=== PATIENT | male | born 1940 | race Caucasian/White ===

== ENCOUNTER 2018-10-23 09:34 | Emergency (ER) | payer MEDICARE ==
[~2018-10-23] VITALS: Ht 182.9 cm; Wt 66.2 kg
[~2018-10-23 09:34] MED LIST: ATEN50 PO
[2018-10-23] MEDS ORDERED: GENTAK (09:58)
[2018-10-23] MEDS ORDERED: Ciloxan5 ML RIGHTEYE (10:04)
== END 2018-10-23 10:51 | disposition home or self-care (01) ==
LOC: ER 09:34
DX: H10.31 Unspecified acute conjunctivitis, right eye (principal); Z79.899 Other long term (current) drug therapy; I10 Essential (primary) hypertension; Z87.891 Personal history of nicotine dependence
CPT/HCPCS: 87070; 87077; 87185; 87205; 99283

== ENCOUNTER 2019-01-03 14:56 | Emergency (ER) | payer OTHER, MEDICARE ==
[~2019-01-03] VITALS: Ht 175.3 cm; Wt 83.9 kg
[~2019-01-03 14:56] MED LIST changes: +Ciloxan5 ML RIGHTEYE; +GENTAK
[2019-01-03 16:00] LABS: BASOPHILS ABSOLUTE AUTO 0.05 K/mm3 (0.00-0.23); BASOPHILS PERCENT AUTO 1 % (0-2); EOSINOPHILS ABSOLUTE AUTO 0.09 K/mm3 (0.00-0.68); EOSINOPHILS PERCENT AUTO 1 % (0-6); Hematocrit 35.3 % (37.0-53.0); Hemoglobin 11.1 g/dL (13.5-17.5); IMMATURE GRAN ABSOLUTE AUTO 0.06 K/mm3 (0.00-0.10); IMMATURE GRAN PERCENT AUTO 1 % (0-1); LYMPHOCYTES PERCENT AUTO 14 % (21-46); MONOCYTES ABSOLUTE AUTO 0.54 K/mm3 (0.16-1.47); MONOCYTES PERCENT AUTO 6 % (4-13); Mean Corpuscular HGB 32.4 pg (26.0-34.0); Mean Corpuscular HGB Conc 31.4 g/dL (31.5-36.5); Mean Corpuscular Volume 103 fL (80-100); Mean Platelet Volume 10.7 fL (9.1-12.4); NEUTROPHILS ABSOLUTE AUTO 6.93 K/mm3 (1.96-9.15); NEUTROPHILS PERCENT AUTO 78 % (41-73); Platelet Count 180 K/mm3 (150-400); RDW Coefficient Variation 13.4 % (11.7-14.2); RDW Standard Deviation 50.9 fL (35.1-46.3); Red Blood Cell Count 3.43 M/mm3 (4.30-5.90); White Blood Cell Count 8.87 K/mm3 (4.00-11.30)
[2019-01-03 16:04] LABS: Base Excess Venous 2.2 mmol/L; Bicarbonate Venous 25.4 mmol/L (24.0-30.0); PCO2 Venous 60.7 mmHg (38-42); PO2 Venous 81.2 mmHg (38-42); pH Blood Venous 7.29 (7.34-7.37)
[2019-01-03 16:15] LABS: Alanine Aminotransfer (ALT/SGP 114 U/L (12-78); Albumin, Blood 3.3 g/dL (3.4-5.0); Albumin/Globulin Ratio 0.9 (0.8-1.8); Alk Phos 94 U/L (50-136); Anion Gap 3 mmol/L (6-16); Aspartate Aminotrans (AST/SGOT 163 U/L (12-37); Bilirubin, Total 0.7 mg/dL (0.1-1.0); Blood Urea Nitrogen 43 mg/dL (8-24); Bun/Creatinine Ratio 47.3 (12.0-20.0); CO2, Blood 31 mmol/L (21-32); Calcium, Blood 8.9 mg/dL (8.5-10.1); Chloride, Blood 106 mmol/L (98-108); Creatinine, Blood 0.91 mg/dL (0.60-1.20); Globulin, Blood 3.5 g/dL (2.2-4.0); Glomerular Filtration Rate >60 (60-); Glucose, Blood 140 mg/dL (70-99); Potassium, Blood 4.6 mmol/L (3.5-5.5); Sodium, Blood 140 mmol/L (136-145); Total Protein, Blood 6.8 g/dL (6.4-8.2)
== END 2019-01-03 19:25 | disposition short-term general hospital (02) ==
LOC: ER 14:56
PROVIDERS: Emergency Medicine
DX: S22.21XA Fracture of manubrium, initial encounter for closed fracture (principal); S32.019A Unspecified fracture of first lumbar vertebra, initial encounter for closed fracture; S27.0XXA Traumatic pneumothorax, initial encounter; T79.7XXA Traumatic subcutaneous emphysema, initial encounter; S60.212A Contusion of left wrist, initial encounter; S60.222A Contusion of left hand, initial encounter; S36.32XA Contusion of stomach, initial encounter; I48.91 Unspecified atrial fibrillation; I10 Essential (primary) hypertension; Z87.891 Personal history of nicotine dependence; Z79.899 Other long term (current) drug therapy; V49.40XA Driver injured in collision with unspecified motor vehicles in traffic accident, initial encounter
CPT/HCPCS: 32551; 36415; 71045; 71260; 72100; 73110; 80053; 82803; 85025; 93005; 93010; 94640; 96374-59; 96375-59; 96376-59; 99285-25; J1170; J2405; Q9967

== ENCOUNTER → 2020-08-08 | Outpatient (CLI) | payer MEDICARE | LOC: LAB 17:29 → LAB SHORT 17:29 | DX: L98.8 Other specified disorders of the skin and subcutaneous tissue (principal) | CPT/HCPCS: 87102; 87210 ==

== ENCOUNTER 2021-03-02 09:02 | Emergency (ER) | payer MEDICARE ==
[~2021-03-02] VITALS: Ht 182.9 cm; Wt 59.0 kg
[2021-03-02] MEDS ORDERED: FUROSEMIDE40 MG (09:41)
[2021-03-02] MEDS ORDERED: KLOR-CON 1010 ME5 (09:41)
== END 2021-03-02 09:38 | disposition home or self-care (01) ==
LOC: ER 09:02
DX: I83.892 Varicose veins of left lower extremity with other complications (principal); I10 Essential (primary) hypertension; Z79.899 Other long term (current) drug therapy
CPT/HCPCS: 12001; 90471; 90714; 99283-25

== ENCOUNTER 2021-04-14 03:04 | Emergency (ER) | payer MEDICARE ==
[~2021-04-14] VITALS: Ht 182.9 cm; Wt 60.3 kg
[~2021-04-14 03:04] MED LIST changes: +FUROSEMIDE40 MG; +KLOR-CON 1010 ME5
[2021-04-14] MEDS ORDERED: POTCHL20ER PO (03:27)
[2021-04-14] MEDS ORDERED: FURO40 PO (03:27)
== END 2021-04-14 03:42 | disposition home or self-care (01) ==
LOC: ER 03:04
DX: Z76.0 Encounter for issue of repeat prescription (principal); I10 Essential (primary) hypertension; Z87.891 Personal history of nicotine dependence
CPT/HCPCS: A9270

== ENCOUNTER → 2022-04-16 | Outpatient (CLI) | payer MEDICARE ==
[~2022-04-16] MED LIST changes: +FURO40 PO; +POTCHL20ER PO
[2022-04-16 13:46] LABS: BASOPHILS ABSOLUTE AUTO 0.08 K/mm3 (0.00-0.23); BASOPHILS PERCENT AUTO 1 % (0-2); EOSINOPHILS ABSOLUTE AUTO 0.38 K/mm3 (0.00-0.68); EOSINOPHILS PERCENT AUTO 5 % (0-6); IMMATURE GRAN ABSOLUTE AUTO 0.02 K/mm3 (0.00-0.10); IMMATURE GRAN PERCENT AUTO 0 % (0-1); LYMPHOCYTES ABSOLUTE AUTO 1.06 K/mm3 (0.84-5.20); LYMPHOCYTES PERCENT AUTO 15 % (21-46); MONOCYTES ABSOLUTE AUTO 0.55 K/mm3 (0.16-1.47); MONOCYTES PERCENT AUTO 8 % (4-13); Mean Corpuscular HGB 31.7 pg (26.0-34.0); Mean Corpuscular HGB Conc 33.3 g/dL (31.5-36.5); Mean Corpuscular Volume 95 fL (80-100); NEUTROPHILS ABSOLUTE AUTO 4.94 K/mm3 (1.96-9.15); NEUTROPHILS PERCENT AUTO 70 % (41-73); Platelet Count 240 K/mm3 (150-400); RDW Coefficient Variation 13.6 % (11.7-14.2); RDW Standard Deviation 47.7 fL (35.1-46.3); Red Blood Cell Count 3.79 M/mm3 (4.30-5.90); White Blood Cell Count 7.03 K/mm3 (4.00-11.30)
[2022-04-16 13:48] LABS: Bun/Creatinine Ratio 24.7 (12.0-20.0); Calcium, Blood 9.5 mg/dL (8.5-10.1); Creatinine, Blood 0.85 mg/dL (0.60-1.20); Potassium, Blood 4.5 mmol/L (3.5-5.5)
== END | disposition home or self-care (01) ==
LOC: LAB SHORT 13:39 → LAB 13:39
PROVIDERS: Physician Assistant Surgical
DX: M79.89 Other specified soft tissue disorders (principal)
CPT/HCPCS: 80048; 83880; 85025

== ENCOUNTER 2022-09-29 19:39 | Observation (INO) | payer MEDICARE ==
[~2022-09-29 19:39] MED LIST changes: -FUROSEMIDE40 MG; +FUROSEMIDE40 MG PO
[2022-09-29 20:15] LABS: BASOPHILS ABSOLUTE AUTO 0.02 K/mm3 (0.00-0.23); BASOPHILS PERCENT AUTO 0 % (0-2); EOSINOPHILS ABSOLUTE AUTO 0.01 K/mm3 (0.00-0.68); EOSINOPHILS PERCENT AUTO 0 % (0-6); Hematocrit 21.3 % (37.0-53.0); Hemoglobin 6.7 g/dL (13.5-17.5); IMMATURE GRAN ABSOLUTE AUTO 0.06 K/mm3 (0.00-0.10); IMMATURE GRAN PERCENT AUTO 1 % (0-1); LYMPHOCYTES ABSOLUTE AUTO 0.92 K/mm3 (0.84-5.20); LYMPHOCYTES PERCENT AUTO 9 % (21-46); MONOCYTES ABSOLUTE AUTO 0.58 K/mm3 (0.16-1.47); MONOCYTES PERCENT AUTO 6 % (4-13); Mean Corpuscular HGB 31.5 pg (26.0-34.0); Mean Corpuscular HGB Conc 31.5 g/dL (31.5-36.5); Mean Corpuscular Volume 100 fL (80-100); Mean Platelet Volume 10.5 fL (9.1-12.4); NEUTROPHILS ABSOLUTE AUTO 8.29 K/mm3 (1.96-9.15); NEUTROPHILS PERCENT AUTO 84 % (41-73); Platelet Count 186 K/mm3 (150-400); RDW Coefficient Variation 14.4 % (11.7-14.2); RDW Standard Deviation 51.9 fL (35.1-46.3); Red Blood Cell Count 2.13 M/mm3 (4.30-5.90); White Blood Cell Count 9.88 K/mm3 (4.00-11.30)
[2022-09-29 20:34] LABS: Albumin, Blood 2.5 g/dL (3.4-5.0); Albumin/Globulin Ratio 0.9 (0.8-1.8); Bilirubin, Total 0.4 mg/dL (0.1-1.0); Bun/Creatinine Ratio 31.3 (12.0-20.0); Creatinine, Blood 1.47 mg/dL (0.60-1.20); Globulin, Blood 2.9 g/dL (2.2-4.0); Potassium, Blood 4.5 mmol/L (3.5-5.5); Total Protein, Blood 5.4 g/dL (6.4-8.2)
[2022-09-29 22:46] LABS: RETICULOCYTE ABSOLUTE 0.0621 M/mm3 (0.0200-0.1100); RETICULOCYTE COUNT PERCENT 2.89 % (0.50-2.50)
[2022-09-29 23:13] LABS: Hematocrit 18.5 % (37.0-53.0)
[2022-09-29] MEDS ORDERED: ATEN25 PO (23:13)
[2022-09-29 23:28] LABS: International Normalized Ratio 1.08; Prothrombin Time Results 11.3 Sec (9.7-11.5)
[2022-09-29 23:39] LABS: Thyroid Stimulating Hormone 29.1 uIU/mL (0.360-4.800)
[2022-09-29 23:40] LABS: Percent Saturation 9.1 % (20.0-50.0)
[2022-09-29 23:56] VITALS: BP 102/46
[2022-09-30 02:40] VITALS: BP 111/67
[2022-09-30 05:21] LABS: Hematocrit 25.7 % (37.0-53.0); Hemoglobin 8.7 g/dL (13.5-17.5)
--- NOTE | 2022-09-30 05:29 | NUR ---
admit pt, blood infusing from ER [facility]. pt very nice and polite but confused , easily reoriented, bed alarm in place. vss no distress no pain,pt was able to ambulate to bathroom with minimal assist.
[2022-09-30 05:47] LABS: Albumin, Blood 2.5 g/dL (3.4-5.0); Albumin/Globulin Ratio 0.9 (0.8-1.8); Bun/Creatinine Ratio 32.1 (12.0-20.0); Creatinine, Blood 1.31 mg/dL (0.60-1.20); Globulin, Blood 2.7 g/dL (2.2-4.0); Potassium, Blood 4.5 mmol/L (3.5-5.5); Total Protein, Blood 5.2 g/dL (6.4-8.2)
--- NOTE | 2022-09-30 06:52 | NUR ---
VITAL DOCUMENTAION THE VITAL SIGNS FOR THE BLOOD TRANSFUION DID NOT TRANSFER TO COMPUTER
[2022-09-30 06:57] VITALS: BP 109/68
[2022-09-30 07:40] VITALS: BP 110/92
[2022-09-30 12:25] LABS: Hematocrit 27.7 % (37.0-53.0); Hemoglobin 9.1 g/dL (13.5-17.5)
[2022-09-30 16:08] VITALS: BP 114/57
[2022-09-30 19:37] VITALS: BP 127/56
[2022-10-01 03:03] VITALS: BP 141/102
--- NOTE | 2022-10-01 04:12 | NUR ---
SHIFT SUMMARY. PT WAS AOX4 ON ASSESSMENT, ABLE TO ANSWER ALL QUESTIONS APPROPRIATELY BUT HAS SPORADICALLY WOKEN SINCE SOMEHWAT DISORIENTED AND CONFUSED. EASILY REDIRECTED. PLEASANT, COOPERATIVE WITH CARE THUS FAR THIS SHIFT BUT OCCASIONALLY SOMEWHAT IRRITABLE. 1 BM THIS SHIFT, EARLY THIS MORNING. SBA TO BATHROOM. BED ALARM ON. DRESSING ON L HEEL C/D/I. PT TOOK 2100 MEDICATION WITHOUT DIFFICULTY. CALLS APPROPRIATELY SOMETIMES, OTHERTIMES ATTEMPTS OOB WITHOUT ASSISTANCE. BED LOCKED IN LOWEST POSITION. CALL LIGHT LEFT WITHIN REACH.
[2022-10-01 05:06] LABS: Hematocrit 24.1 % (37.0-53.0)
[2022-10-01 05:49] LABS: Albumin, Blood 2.4 g/dL (3.4-5.0); Albumin/Globulin Ratio 0.9 (0.8-1.8); Bilirubin, Total 0.4 mg/dL (0.1-1.0); Bun/Creatinine Ratio 27.5 (12.0-20.0); Calcium, Blood 8.4 mg/dL (8.5-10.1); Creatinine, Blood 0.94 mg/dL (0.60-1.20); Globulin, Blood 2.8 g/dL (2.2-4.0); Total Protein, Blood 5.2 g/dL (6.4-8.2)
[2022-10-01 08:01] VITALS: BP 149/100
[2022-10-01 09:45] VITALS: BP 134/73
[2022-10-01 09:46] VITALS: BP 134/73
[2022-10-01 10:57] LABS: Hematocrit 26.1 % (37.0-53.0); Hemoglobin 8.7 g/dL (13.5-17.5)
[2022-10-01] MEDS ORDERED: FURO40 PO (12:08)
--- NOTE | 2022-10-01 15:54 | NUR ---
1525 PATIENT DISCHARGED HOME WITH MATTY DAUGHTER IN LAW, BOTH STATED UNDERSTANDING OF DISCHARGE INSTRUCTIONS
== END 2022-10-01 15:50 | disposition home health service (06) ==
LOC: ER 19:39 → MEDS 19:40
PROVIDERS: Family Medicine; ADMIT Internal Medicine
DX: D62 Acute posthemorrhagic anemia (principal); I50.20 Unspecified systolic (congestive) heart failure; I48.91 Unspecified atrial fibrillation; N17.9 Acute kidney failure, unspecified; K21.9 Gastro-esophageal reflux disease without esophagitis; E03.9 Hypothyroidism, unspecified; Z66 Do not resuscitate; Z87.891 Personal history of nicotine dependence; Z79.899 Other long term (current) drug therapy
CPT/HCPCS: 36415; 36430; 80053; 82607; 82728; 82746; 83540; 83550; 83615; 84443; 85014; 85018; 85025; 85045; 85379; 85610; 86850; 86900; 86901; 86923; 96365; 97110; 97162; 97165; 97530; 99284-25; A9270; G0378; J2916; J7030; P9016

== ENCOUNTER 2023-05-27 16:19 | Emergency (ER) | payer MEDICARE ==
[~2023-05-27] VITALS: Ht 182.9 cm; Wt 61.7 kg
[~2023-05-27 16:19] MED LIST changes: +ATEN25 PO
[2023-05-27 16:36] VITALS: BP 140/84
[2023-05-27] MEDS ORDERED: ERYT.5TO RIGHTEYE (17:09)
== END 2023-05-27 17:26 | disposition home or self-care (01) ==
LOC: ER 16:19
DX: S01.301A Unspecified open wound of right ear, initial encounter (principal); H10.9 Unspecified conjunctivitis; W22.8XXA Striking against or struck by other objects, initial encounter; Z79.899 Other long term (current) drug therapy; I10 Essential (primary) hypertension; Z87.891 Personal history of nicotine dependence
CPT/HCPCS: 99282

== ENCOUNTER → 2023-11-24 | Outpatient (CLI) | payer MEDICARE ==
[~2023-11-24] MED LIST changes: +ERYT.5TO RIGHTEYE
[2023-11-24 14:45] LABS: BASOPHILS ABSOLUTE AUTO 0.08 K/mm3 (0.00-0.23); BASOPHILS PERCENT AUTO 1 % (0-2); EOSINOPHILS ABSOLUTE AUTO 0.46 K/mm3 (0.00-0.68); EOSINOPHILS PERCENT AUTO 8 % (0-6); Hematocrit 36.3 % (37.0-53.0); Hemoglobin 11.8 g/dL (13.5-17.5); IMMATURE GRAN ABSOLUTE AUTO 0.01 K/mm3 (0.00-0.10); IMMATURE GRAN PERCENT AUTO 0 % (0-1); LYMPHOCYTES ABSOLUTE AUTO 1.11 K/mm3 (0.84-5.20); LYMPHOCYTES PERCENT AUTO 19 % (21-46); MONOCYTES PERCENT AUTO 8 % (4-13); Mean Corpuscular HGB 30.7 pg (26.0-34.0); Mean Corpuscular HGB Conc 32.5 g/dL (31.5-36.5); Mean Corpuscular Volume 95 fL (80-100); Mean Platelet Volume 10.1 fL (9.1-12.4); NEUTROPHILS ABSOLUTE AUTO 3.85 K/mm3 (1.96-9.15); NEUTROPHILS PERCENT AUTO 64 % (41-73); Platelet Count 191 K/mm3 (150-400); RDW Coefficient Variation 14.2 % (11.7-14.2); RDW Standard Deviation 48.5 fL (35.1-46.3); Red Blood Cell Count 3.84 M/mm3 (4.30-5.90); White Blood Cell Count 6.01 K/mm3 (4.00-11.30)
[2023-11-24 15:03] LABS: Albumin, Blood 3.4 g/dL (3.4-5.0); Albumin/Globulin Ratio 0.8 (0.8-1.8); Bilirubin, Total 0.8 mg/dL (0.1-1.0); Bun/Creatinine Ratio 25.7 (12.0-20.0); Calcium, Blood 9.6 mg/dL (8.5-10.1); Creatinine, Blood 1.05 mg/dL (0.60-1.20); Globulin, Blood 4.1 g/dL (2.2-4.0); Potassium, Blood 4.1 mmol/L (3.5-5.5); Thyroid Stimulating Hormone 5.279 uIU/mL (0.360-4.800); Total Protein, Blood 7.5 g/dL (6.4-8.2)
== END | disposition home or self-care (01) ==
LOC: LAB 14:39 → LAB SHORT 14:39
PROVIDERS: Physician Assistant
DX: R41.0 Disorientation, unspecified (principal)
CPT/HCPCS: 80053; 84443; 85025

== ENCOUNTER 2024-01-22 13:41 | Emergency (ER) | payer MEDICARE ==
[~2024-01-22] VITALS: Ht 182.9 cm; Wt 54.4 kg
[2024-01-22 15:39] VITALS: BP 117/72
== END 2024-01-22 16:07 | disposition home or self-care (01) ==
LOC: ER 13:41
DX: Z48.00 Encounter for change or removal of nonsurgical wound dressing (principal); I87.2 Venous insufficiency (chronic) (peripheral); I10 Essential (primary) hypertension; Z79.899 Other long term (current) drug therapy
CPT/HCPCS: 99282

== ENCOUNTER 2024-04-16 15:05 | Emergency (ER) | payer MEDICARE ==
[~2024-04-16] VITALS: Ht 182.9 cm; Wt 54.4 kg
[2024-04-16 15:10] VITALS: BP 137/85
[2024-04-16 15:31] LABS: BASOPHILS ABSOLUTE AUTO 0.07 K/mm3 (0.00-0.23); BASOPHILS PERCENT AUTO 1 % (0-2); EOSINOPHILS ABSOLUTE AUTO 0.51 K/mm3 (0.00-0.68); EOSINOPHILS PERCENT AUTO 10 % (0-6); Hematocrit 36.5 % (37.0-53.0); Hemoglobin 12.2 g/dL (13.5-17.5); IMMATURE GRAN ABSOLUTE AUTO 0.01 K/mm3 (0.00-0.10); IMMATURE GRAN PERCENT AUTO 0 % (0-1); LYMPHOCYTES ABSOLUTE AUTO 1.03 K/mm3 (0.84-5.20); LYMPHOCYTES PERCENT AUTO 19 % (21-46); MONOCYTES ABSOLUTE AUTO 0.39 K/mm3 (0.16-1.47); MONOCYTES PERCENT AUTO 7 % (4-13); Mean Corpuscular HGB 31.6 pg (26.0-34.0); Mean Corpuscular HGB Conc 33.4 g/dL (31.5-36.5); Mean Corpuscular Volume 95 fL (80-100); Mean Platelet Volume 9.4 fL (9.1-12.4); NEUTROPHILS PERCENT AUTO 62 % (41-73); Platelet Count 223 K/mm3 (150-400); RDW Coefficient Variation 13.6 % (11.7-14.2); RDW Standard Deviation 47.3 fL (35.1-46.3); Red Blood Cell Count 3.86 M/mm3 (4.30-5.90); White Blood Cell Count 5.31 K/mm3 (4.00-11.30)
[2024-04-16 15:52] LABS: Albumin/Globulin Ratio 0.7 (0.8-1.8); Bilirubin, Total 0.3 mg/dL (0.1-1.0); Calcium, Blood 9.7 mg/dL (8.5-10.1); Creatinine, Blood 0.83 mg/dL (0.60-1.20); Globulin, Blood 4.3 g/dL (2.2-4.0); Total Protein, Blood 7.3 g/dL (6.4-8.2)
[2024-04-16] MEDS ORDERED: Trimethoprim/Sulfamethoxazole DS Tab PO ONE (17:15)
[2024-04-16] MEDS ORDERED: Bactrim Ds Tab1 EACH PO (17:15)
== END 2024-04-16 17:49 | disposition home or self-care (01) ==
LOC: ER 15:05
PROVIDERS: Student in an Organized Health Care Education/Training Program
DX: L03.116 Cellulitis of left lower limb (principal); I10 Essential (primary) hypertension; Z79.899 Other long term (current) drug therapy
CPT/HCPCS: 80053; 85025; 99283; A9270

== ENCOUNTER 2024-05-18 10:26 | Inpatient (IN) | payer MEDICARE ==
[~2024-05-18] VITALS: Ht 182.9 cm; Wt 53.4 kg
[~2024-05-18 10:26] MED LIST changes: +Bactrim Ds Tab1 EACH PO
[2024-05-18 11:26] LABS: BASOPHILS ABSOLUTE AUTO 0.02 K/mm3 (0.00-0.23); BASOPHILS PERCENT AUTO 0 % (0-2); EOSINOPHILS PERCENT AUTO 0 % (0-6); Hematocrit 27.3 % (37.0-53.0); Hemoglobin 9.2 g/dL (13.5-17.5); IMMATURE GRAN ABSOLUTE AUTO 0.04 K/mm3 (0.00-0.10); IMMATURE GRAN PERCENT AUTO 0 % (0-1); LYMPHOCYTES ABSOLUTE AUTO 0.97 K/mm3 (0.84-5.20); LYMPHOCYTES PERCENT AUTO 9 % (21-46); MONOCYTES ABSOLUTE AUTO 0.53 K/mm3 (0.16-1.47); MONOCYTES PERCENT AUTO 5 % (4-13); Mean Corpuscular HGB 31.8 pg (26.0-34.0); Mean Corpuscular HGB Conc 33.7 g/dL (31.5-36.5); Mean Corpuscular Volume 95 fL (80-100); Mean Platelet Volume 10.1 fL (9.1-12.4); NEUTROPHILS ABSOLUTE AUTO 8.98 K/mm3 (1.96-9.15); NEUTROPHILS PERCENT AUTO 85 % (41-73); Platelet Count 206 K/mm3 (150-400); RDW Coefficient Variation 13.8 % (11.7-14.2); RDW Standard Deviation 47.7 fL (35.1-46.3); Red Blood Cell Count 2.89 M/mm3 (4.30-5.90); White Blood Cell Count 10.54 K/mm3 (4.00-11.30)
[2024-05-18 11:53] LABS: Albumin, Blood 3.4 g/dL (3.4-5.0); Bilirubin, Total 0.8 mg/dL (0.1-1.0); Bun/Creatinine Ratio 43.2 (12.0-20.0); Calcium, Blood 9.6 mg/dL (8.5-10.1); Creatinine, Blood 1.48 mg/dL (0.60-1.20); Globulin, Blood 3.4 g/dL (2.2-4.0); Potassium, Blood 4.8 mmol/L (3.5-5.5); Total Protein, Blood 6.8 g/dL (6.4-8.2)
[2024-05-18] MEDS ORDERED: Lactated Ringer's 1,000 ML IV ONE (12:00)
[2024-05-18 12:55] LABS: CORONAVIRUS COVID-19 AG Negative (NEGATIVE); INFLUENZA A AG Negative (NEGATIVE); INFLUENZA B AG Negative (NEGATIVE)
[2024-05-18 13:54] LABS: Source, Urine Straight Cath
[2024-05-18 13:57] LABS: Appearance, Urine Clear (Clear); Bilirubin, Urine Neg (Neg); Blood, Urine Neg (Neg); Color, Urine Yellow (P-Yellow); Glucose Qualitative, Urine Neg (Neg); Ketones, Urine Neg (Neg); Leukocyte Esterase, Urine Neg (Neg); Nitrite, Urine Neg (Neg); Protein, Urine 2+ (Neg); Urobilinogen, Urine NORM (Normal)
[2024-05-18 14:22] LABS: Bacteria Mod /hpf; Hyaline Casts 0-2 /lpf (0-2); Mucus Light (0-Heavy); Red Blood Cells, Urine 0-2 /hpf (0-2); Squamous Epithelial Cells Rare /hpf (Few); White Blood Cells, Urine 0-2 /hpf (0-5)
[2024-05-18] MEDS ORDERED: Bisacodyl 10 MG Supp PR PRN (14:50)
[2024-05-18] MEDS ORDERED: Magnesium Hydroxide Conc 10 ML UDC PO PRN (14:50)
[2024-05-18] MEDS ORDERED: Lactated Ringer's 1,000 ML IV SCH (14:50)
[2024-05-18] MEDS ORDERED: Ondansetron 4 MG TAB PO PRN (14:50)
[2024-05-18] MEDS ORDERED: FLU VACC TS2024-25(6MOS UP)/PF 45 MCG/0.5 ML SYRINGE IM SCH (14:50)
[2024-05-18] MEDS ORDERED: TraZODone HCl 50 MG Tab PO PRN (14:50)
[2024-05-18] MEDS ORDERED: Prochlorperazine Edisylate 10 mg Vial IV PRN (14:55)
[2024-05-18] MEDS ORDERED: Labetalol HCL 5 MG/ML 4ML Injection (Single Dose) IV PRN (15:00)
[2024-05-18] MEDS ORDERED: Ipratropium/Albuterol SulF 2.5-0.5MG/3 ML Amp INH PRN (15:40)
[2024-05-18] MEDS ORDERED: Mometasone/Formoterol MDI 200/5 mcg 13 GM INH SCH (15:45)
[2024-05-18] MEDS ORDERED: CefTRIAXone Sodium 2,000 MG in NS 100 ML IV SCH (16:00)
[2024-05-18] MEDS ORDERED: NS 1,000 ML IV SCH (16:00)
[2024-05-18] MEDS ORDERED: Doxycycline Hyclate 100 MG in Dextrose 5% 250 ML IV SCH (16:00)
[2024-05-18 16:41] VITALS: BP 121/73
--- NOTE | 2024-05-18 17:44 | NUR ---
SHIFT SUMMARY PT A&OX2, VSS, NOT AMB AT THIS TIME, IS VOIDING DIARRHEA, AND DENIED PAIN. CREAM APPLIED FOR SCABIES PER EMAR. NS INFUSING PER ORDER. CALL LIGHT WITHIN REACH AND BED ALARM ON FOR SAFETY.
[2024-05-18 19:49] VITALS: BP 128/66
[2024-05-18] MEDS ORDERED: Famotidine 20 MG Tab PO SCH (21:00)
[2024-05-18] MEDS ORDERED: Lactobacil 2-S.Thermo-Bifido 1 1 Cap PO SCH (21:00)
--- NOTE | 2024-05-18 23:08 | NUR ---
ARM BOARD PLACED ON PT RIGHT ARM TO PREVENT BENDING AND CUTTING OFF IVF. DISCUSSED WITH PT. PT VOICED UNDERSTANDING
--- NOTE | 2024-05-19 03:13 | NUR ---
FRESH FOODS CAKE DECORATOR SUMMARY VSS. ALERT AND ORIENTED X 2. CONFUSED, COOPERATIVE WITH CARE. WEAK, REQUIRED REDIRECTION SEVERAL TIMES TO REMAIN IN BED DUE TO WEAKNESS. INCONT A FEW TIMES OF LOOSE STOOL. CHANAGED AND CLEANED. IVF OF NS INFUSING AT 75 ML/HR. TOLERATES REGULAR DIET. LEFT LOWER EXT SWOLLEN AND RED, WARM TO TOUCH - DISCUSSED CELLULITIS WITH PT. HAS BEEN RESTING QUIETLY WITH FEW INTERRUPTIONS SINCE LAST CHANGE AROUND 2300. REMAINS ON CONTACT ISOLATION AM RN REPORTED FOR SCABIES. ABLE TO REPOSITION SELF IN BED WITHOUT ASSIST FOR COMFORT. CALL LIGHT IN REACH, RAILS UP X 2 AND BED IN LOW POSITION FOR SAFETY. WILL CONT TO MONITOR
[2024-05-19] MEDS ORDERED: Levothyroxine Sodium 0.1 MG Tab PO SCH (06:00)
[2024-05-19 06:37] LABS: BASOPHILS ABSOLUTE AUTO 0.02 K/mm3 (0.00-0.23); BASOPHILS PERCENT AUTO 0 % (0-2); EOSINOPHILS ABSOLUTE AUTO 0.05 K/mm3 (0.00-0.68); EOSINOPHILS PERCENT AUTO 1 % (0-6); Hemoglobin 8.3 g/dL (13.5-17.5); IMMATURE GRAN ABSOLUTE AUTO 0.03 K/mm3 (0.00-0.10); IMMATURE GRAN PERCENT AUTO 0 % (0-1); LYMPHOCYTES ABSOLUTE AUTO 0.92 K/mm3 (0.84-5.20); LYMPHOCYTES PERCENT AUTO 13 % (21-46); MONOCYTES ABSOLUTE AUTO 0.47 K/mm3 (0.16-1.47); MONOCYTES PERCENT AUTO 6 % (4-13); Mean Corpuscular HGB 32.7 pg (26.0-34.0); Mean Corpuscular HGB Conc 34.6 g/dL (31.5-36.5); Mean Corpuscular Volume 95 fL (80-100); Mean Platelet Volume 9.9 fL (9.1-12.4); NEUTROPHILS ABSOLUTE AUTO 5.84 K/mm3 (1.96-9.15); NEUTROPHILS PERCENT AUTO 80 % (41-73); Platelet Count 173 K/mm3 (150-400); RDW Coefficient Variation 14.1 % (11.7-14.2); RDW Standard Deviation 48.1 fL (35.1-46.3); Red Blood Cell Count 2.54 M/mm3 (4.30-5.90); White Blood Cell Count 7.33 K/mm3 (4.00-11.30)
[2024-05-19 06:38] VITALS: BP 113/69
[2024-05-19 07:01] LABS: Albumin, Blood 2.7 g/dL (3.4-5.0); Albumin/Globulin Ratio 0.9 (0.8-1.8); Bilirubin, Total 0.4 mg/dL (0.1-1.0); Calcium, Blood 9.1 mg/dL (8.5-10.1); Creatinine, Blood 0.98 mg/dL (0.60-1.20); Globulin, Blood 3.1 g/dL (2.2-4.0); Magnesium, Blood 2.2 mg/dL (1.6-2.4); Potassium, Blood 4.1 mmol/L (3.5-5.5); Total Protein, Blood 5.8 g/dL (6.4-8.2)
[2024-05-19 07:50] VITALS: BP 131/66
[2024-05-19] MEDS ORDERED: Enoxaparin 30 MG/0.3 ML SYR SC SCH (09:00)
[2024-05-19] MEDS ORDERED: Enoxaparin 40 MG/0.4 ML SYR SC SCH (09:00)
[2024-05-19] MEDS ORDERED: Famotidine 20 MG Tab PO SCH (09:00)
--- NOTE | 2024-05-19 15:42 | NUR ---
PT DISCHARGED HOME VIA PRIVATE VEHICLE. EDUCATION PROVIDED, ALL BELONGINGS SENT WITH PT.
[2024-05-19 15:52] VITALS: BP 112/71
--- NOTE | 2024-05-19 17:42 | NUR ---
PALLIATIVE CARE VISIT: MET WITH PATIENT IN HIS ROOM. PT IS SITTING IN CHAIR WATCHING TV. HE APPEARS TO BE ALERT BUT HE IS VERY CONFUSED. UNABLE TO ANSWER WHERE HE IS AT. DOES NOT RECALL WHERE HE IS WHEN HE TOLD. HE FORGETS AFTER TALKING ABOUT OTHER THINGS. HE DOES NOT KNOW WHY HE IS IN HOSPITAL. HE IS PLEASANTLY CONFUSED AND DOES NOT APPEAR TO BE ANXIOUS ABOUT BEING IN UNFAMILIAR ENVIRONMENT. PT HAS SCABIES AND WILL NEED 2ND TX PRIOR TO GOING TO SNF PER CM NOTES. WILL DISCUSS POLST WITH SON.
--- NOTE | 2024-05-19 18:18 | NUR ---
PT ORIENTED TO SELF ONLY, PLEASANTLY CONFUSED. VSS, RA, NON-TELE, ON CONTACT PRECAUTIONS FOR SCABIES. PHYSICAL THERAPY WORKED WITH PT THIS MORNING, PT WAS TOO WEAK TO GET OOB. PT STATED THAT HE NEEDED TO HAVE A BM, 2 SMALL LOOSE BM IN BRIEF. PT STATED THAT HE FELT CONSTIPATED, MD AWARE. WHILE OCCUPATIONAL THERAPY WAS WORKING WITH PT, HE ASKED TO USE THE TOILET AND WAS ABLE TO WALK WITH OT TO TOILET AND HAD A LARGE BM, NO BM FOR REST OF SHIFT. CM SPOKE WITH PT SON TODAY ABOUT WISHES FOR SNF PLACEMENT.
[2024-05-19 19:46] VITALS: BP 146/101
[2024-05-19 21:22] VITALS: BP 116/103
[2024-05-19] MEDS ORDERED: Metoprolol Tartrate 25 MG Tab PO SCH (22:00)
[2024-05-20] VITALS (8 sets, daily range): BP systolic 90–140; BP diastolic 60–80
--- NOTE | 2024-05-20 06:45 | NUR ---
SHIFT SUMMARY: Pt is admitted for failure to thrive and is a DNR. Is alert to self and able to make some needs known. ADLs have been mostly 1p. On contact ISO for scabies. Denies pain or discomfort when asked.
[2024-05-20] MEDS ORDERED: Acetaminophen 325 MG TABLET PO STA (12:25)
[2024-05-20] MEDS ORDERED: Erythromycin 0.5% Opth Oint 3.5 gm RIGHTEYE SCH (13:00)
[2024-05-20] MEDS ORDERED: Acetaminophen 325 MG TABLET PO PRN (13:00)
--- NOTE | 2024-05-20 18:30 | NUR ---
PT PLEASANTLY CONFUSED TODAY. ALERT TO SELF AND DID SAY WAS AT HOSPITAL, BUT NOT KNOWN WHERE. CONFUSION WORSE THIS SHARAN. HAS JUMPED OUT OF BED X2 FOR ME TODAY. ABLE TO REDIRECT BACK TO BED. BP LIGHTLY SOFT THIS SHARAN, RETAKE IMPROVED SOME. PT IS EATING AND DRINKING WELL. PT DENIES SYMPTOMS. STATES HAS BEEN EATING GREAT. FOOD IS GREAT. CONTINUES TO BE WEAK. NO FURTHER CONCERNS NOTED TODAY. BED INLOW POSITION, CALL LITE IN REACH, BED ALARM ON FOR SAFETY.
--- NOTE | 2024-05-20 23:03 | NUR ---
NURSE NOTE PT FELL AT APPROX 2235. RN NOTICED THAT FEET WERE OFF RIGHT SIDE OF BED. PT'S BED ALARM RANG AND RN NOTICED THAT PT WAS SLIDING OFF BED. PT SLID DOWN TO FLOOR ON KNEES, PT WAS RESTING UPPER BODY ON BED. PT WAS LIFTED OFF FLOOR INTO BED, VITALS WERE TAKEN, AND PT WAS ASSESSED. WHEN ASKED ABOUT WHAT HAPPENED, PT STATED HE NEEDED TO GO TO BATHROOM. PT EDUCATED ABOUT CALL LIGHT USE, ESPECIALLY WITH TOILETING. PT RECEPTIVE. PT HAS NEW SKIN TEAR ON BACK, POSSIBLY DUE TO SLIDING OFF BED. PT REMAINS AOX2, CONFUSED AND FORGETFUL.
--- NOTE | 2024-05-21 01:24 | NUR ---
NURSING NOTE NOTIFIED HOSPITALIST AT 0122 CONCERNING PATIENT FALL.
[2024-05-21 05:55] VITALS: BP 125/62
[2024-05-21 05:57] LABS: Hematocrit 22.4 % (37.0-53.0); Hemoglobin 7.6 g/dL (13.5-17.5); Mean Corpuscular HGB 32.2 pg (26.0-34.0); Mean Corpuscular HGB Conc 33.9 g/dL (31.5-36.5); Mean Corpuscular Volume 95 fL (80-100); Mean Platelet Volume 10.3 fL (9.1-12.4); Platelet Count 170 K/mm3 (150-400); RDW Coefficient Variation 14.6 % (11.7-14.2); RDW Standard Deviation 49.9 fL (35.1-46.3); Red Blood Cell Count 2.36 M/mm3 (4.30-5.90); White Blood Cell Count 5.12 K/mm3 (4.00-11.30)
--- NOTE | 2024-05-21 06:03 | NUR ---
SHIFT SUMMARY PT RESTING COMFORTABLY IN BED. PT WAS AOX2, CONFUSED YET COOPERATIVE. HOWEVER, PT WAS IMPULSIVE AT START OF SHIFT, GETTING OUT OF BED WITHOUT CALLING. AT 2235, PT FELL. HE SLID DOWN THE BED, AND RN ATTEMPTED TO GET PT IN BED, HE SLID ALL THE WAY DOWN TO THE FLOOR, AND HIS KNEES TOUCHED THE GROUND. POST FALL ASSESSMENT WAS DONE. BED ALARM SENSITIVITY WAS INCREASED. PT WAS AOX2 AFTER FALL, AND HE WAS LESS INCLINED TO GET OUT OF BED. THE HOSPITALIST WAS NOTIFIED OF FALL. PT HAS BEEN MORE COOPERATIVE RECENTLY, THE ONLY TIME HE ATTEMPTED TO GET OUT OF BED, HE WAS EASILY REDIRECTED. BED IS LOW AND LOCKED, WITH BED ALARM ON. NO OTHER ACUTE EVENTS OVERNIGHT.
[2024-05-21 06:43] LABS: Albumin, Blood 2.3 g/dL (3.4-5.0); Albumin/Globulin Ratio 0.8 (0.8-1.8); Bilirubin, Total 0.3 mg/dL (0.1-1.0); Bun/Creatinine Ratio 29.1 (12.0-20.0); Calcium, Blood 8.7 mg/dL (8.5-10.1); Creatinine, Blood 0.72 mg/dL (0.60-1.20); Globulin, Blood 2.9 g/dL (2.2-4.0); Potassium, Blood 3.7 mmol/L (3.5-5.5); Total Protein, Blood 5.2 g/dL (6.4-8.2)
[2024-05-21 08:28] VITALS: BP 123/64
[2024-05-21] MEDS ORDERED: Aspirin 81 MG Chew PO SCH (09:00)
--- NOTE | 2024-05-21 10:15 | NUR ---
assumed care. pt a/o x 3 this morning, on iso for scabies that was treated in ER. pt has been cooperative with care and was assisted to chair for breakfast, pt was able to feed self. no c/o pain no distress.
[2024-05-21 16:18] VITALS: BP 128/64
--- NOTE | 2024-05-21 16:21 | NUR ---
NO C/O PAIN, SON AT BEDSIDE, PT IN VERY GOOD SPIRITS AND STATES THAT HIS APPETITE IS MUCH BETTER AFTER RECEIVING SIMULANT. WILL ASSIST UP FOR DINNER
[2024-05-21 20:19] VITALS: BP 119/69
--- NOTE | 2024-05-21 21:50 | NUR ---
@1049 THIS MAINTENANCE ELECTRICIAN CONTACTED THE ON-CALL HOSPITALIST REGARDING ORDER FOR ITCHING, PT IS SCRATCHING HIS SKIN AND IS ON ISOLATION FOR POSSIBLE SCABIES. NEW ORDER OF BENADRYL 50MG Q8HRS PRN RECEIVED. ENTERED TO [employer], SEE EMAR.
[2024-05-21] MEDS ORDERED: DiphenhydrAMINE HCl 50 MG Cap PO PRN (21:55)
[2024-05-22 02:30] VITALS: BP 141/72
--- NOTE | 2024-05-22 03:23 | NUR ---
SHIFT SUMMARY PT IS A/O X2, CONFUSED. UNABLE TO REORIENT. SOME AGITATION/RESTLESSNESS @HS, PT SCRATCHING SKIN T/O THE BODY. NEW ORDER FOR PO PRN BENADRYL 50MG Q8HRS RECEIVED FROM THE ON-CALL HOSPITALIST. EFFECTIVE FOR ITCHING AND RESTLESSNESS. PT DENIES PAIN. BED ALARM FOR SAFETY. LL CELLULITIS +1 EDEMA. AROUND RIGHT EYE SWOLLEN AND REDDENSS, SCHEDULED OINTMENT APPLIED. PT TOLERATED WELL. NO ACUTE EVENTS DURING THIS SHIFT. BED AT THE LOWEST POSITION, CALL LIGHT W/I REACH. FREQUENT CHECKS BY THE DOOR, PT CONTINUES ON CONTACT ISOLATION D/T DX OF SCABIES.
[2024-05-22 05:00] VITALS: BP 123/79
--- NOTE | 2024-05-22 05:33 | NUR ---
@0450 PT HAD A WITNESSED FALL. PT CLIMBED OUT OF THE BED LANDING ON HIS RIGHT SIDE. ASSISTED BACK TO BED. SKIN TEARS CLEANED AND BANDAGED. VSS. ADVERTISING PRODUCTION MANAGER, AND NOTIFIED. PT DENIES A NEED FOR PRN PO TYLENOL. BED ALARM WAS ON DURING THIS TIME. VEHICLE CONTROLS ENGINEER NOTIFIED.
[2024-05-22 06:09] LABS: Hematocrit 25.5 % (37.0-53.0); Hemoglobin 8.5 g/dL (13.5-17.5)
[2024-05-22 07:09] VITALS: BP 117/78
[2024-05-22 07:21] LABS: Free Thyroxine 1.09 ng/dL (0.70-1.60); Percent Saturation 17.4 % (20.0-50.0); Thyroid Stimulating Hormone 21.7 uIU/mL (0.360-4.800); Triiodothyronine, Free 0.95 pg/mL (2.18-3.98)
[2024-05-22] MEDS ORDERED: Ascorbic Acid 250 MG Chew PO SCH (17:00)
[2024-05-22 17:37] VITALS: BP 110/87
[2024-05-22] MEDS ORDERED: QUEtiapine Fumarate 25 MG Tab PO SCH (19:00)
[2024-05-22 19:14] VITALS: BP 130/85
--- NOTE | 2024-05-22 19:14 | NUR ---
ASSUMED CARE VSS PT ASSISTED TO CHAIR FOR BREAKFAST. PT IS MORE CONFUSED TODAY BUT REMAINS PLEASENT AND COOPERATIVE WITH CARE. DAY WAS UNEVENTFUL PT NEEDED TO BE REMINDED OVER AND OVER AGAIN TO STAY SEATED, BED ALARM AND BED CHECK IN PLACE, ALSO CAMERA WAS PLACED FOR ADDITIONAL SAFTEY OF PT. PT HAS MULTIPLE INJURIES AND SKIN TEARS BUT HAS NO C/O PAIN
[2024-05-22] MEDS ORDERED: Docusate Sodium 100 MG Cap PO SCH (21:00)
[2024-05-23 03:33] VITALS: BP 110/79
--- NOTE | 2024-05-23 04:25 | NUR ---
SHIFT SUMMARY PATIENT IS ALERT AND ORIENTED TO SELF THIS SHIFT. PATIENT HAS HAD NO ACUTE EVENTS THIS SHIFT. PATIENT HAS BEEN SLEEPING MOST OF SHIFT. BED ALARM IS ON. PATIENT HAS HAD NO COMPLAINTS OF PAIN, NAUSEA, SOB OR VOMITTING. BED IN LOCKED AND LOWEST POSITION. CALL LIGHT IN PLACE.
[2024-05-23 07:51] VITALS: BP 127/71
[2024-05-23] MEDS ORDERED: Ferrous Sulfate 325 MG Tab PO SCH (09:00)
[2024-05-23 15:15] VITALS: BP 133/73
[2024-05-23 19:35] VITALS: BP 134/79
--- NOTE | 2024-05-23 19:45 | NUR ---
SHIFT SUMMARY PT IS A/OX2, CONFUSION TO CURRENT SITUATION AT TIMES. 1 PERSON ASSIST WITH FWW TO CHAIR BSC. IMPULISVE AT TIMES, BED/CHAIR ALARM ON. PT IS REDIRECTABLE. ON RA, SATS > 95%. PT SLEPT MUCH OF THE DAY.
--- NOTE | 2024-05-24 04:05 | NUR ---
SHIFT SUMMARY PATIENT IS ALERT AND ORIENTED X2. PATIENT HAS HAD NO ACUTE EVENTS THIS SHIFT. VITAL SIGNS REVIEWED. PATIENT HAS NOT BEEN IMPULSIVE AND HAS BEEN REDIRECTABLE THIS SHIFT. PATIENT HAS HAD NO COMPLAINTS OF PAIN, NAUSEA, SOB OR VOMITTING THIS SHIFT. BED IN LOCKED AND LOWEST POSITION. CALL LIGHT IN PLACE.
[2024-05-24 04:55] VITALS: BP 133/82
[2024-05-24 07:33] VITALS: BP 148/87
--- NOTE | 2024-05-24 10:03 | NUR ---
NOTE: PT'S AVASURE CAMERA WAS DISCONTINUED ON 05/24 AT 1004. [facility] CAM IN [place], [place] WAS CONTACTED AND CONFIRMED THE DISCONTINUATION.
[2024-05-24 15:58] VITALS: BP 119/67
--- NOTE | 2024-05-24 17:31 | NUR ---
SHIFT SUMMARY PT AOX2, IMPULSIVE AT TIMES BUT REDIRECTABLE. COOPERATIVE WITH CARE. BA ON. PT IS A 2P ASSIST TO THE BSC. REPOSITIONED THROUGHOUT THE SHIFT. MEDICATED FOR PAIN PER THE EMAR. SEE NOTE ABOUT CAMERA DC THIS SHIFT, REMOVAL HAS GONE WELL. BANDAGES CHANGED THROUGHOUT HIS BODY. PT SNACKED THROUGHOUT THE SHIFT. CALL LIGHT WITHIN REACH, BED LOCKED AND IN THE LOWEST POSITION. WILL REPORT TO ONCOMING NURSE.
[2024-05-24 20:06] VITALS: BP 115/66
[2024-05-25 05:39] VITALS: BP 111/51
[2024-05-25 07:45] VITALS: BP 159/75
[2024-05-25 15:58] VITALS: BP 151/102
--- NOTE | 2024-05-25 17:36 | NUR ---
SHIFT SUMMARY PT COOPERATIVE WITH CARE. AOX2, COMFUSUED AND IMPULSIVE AT TIMES BUT CAN REDIRECT. BED ALARM ON. PT WAS UP TO CHAIR FOR MEALS TODAY. PT WAS A 1P ASSIST THROUGHTOUT THIS SHIFT. SECOND SCABIES TREATMENT DONE TODAY, OUT OF ISO OF 05/25/24. MEDICATED FOR PAIN PER THE EMAR. CALL LIGHT WITHIN REACH. BED LOCKED AND IN LOWEST POSITION. WILL REPORT TO ONCOMING NURSE.
[2024-05-25 19:49] VITALS: BP 143/81
[2024-05-26 00:50] VITALS: BP 138/80
--- NOTE | 2024-05-26 05:08 | NUR ---
SHIFT SUMMARY PT ALERT ORIENTED TO SELF ONLY WITH CONFUSION INC OF B&B WEARS BRIEFS. REMAINS WITH LLE CELLULITIS. LEFT LEG REMAINS RED. VSS ON RA SATTING AT 91%. C/O GENERALIZED PAIN MEDICATED WITH TYLENOL WITH GOOD PAIN RELIEF. DRESSINGS INTACT. REMAINS ON ERYTHROMYCH EYE OINTMENT TO RT EYE. RT EYE REMAINS WITH WHITTISH COLORED DRAINAGE. AWAITING GUARDIANSHIP SO HE CAN BE TRANSFERRED TO FLIGHT CONTROL TOWER OPERATOR CARE. RESTING IN BED AT THIS TIME WITH CALL LIGHT IN REACH AND BED ALARM ON
[2024-05-26 07:52] VITALS: BP 113/63
[2024-05-26] MEDS ORDERED: NS 250 ML IV PRN (08:50)
[2024-05-26] MEDS ORDERED: QUEtiapine Fumarate 25 MG Tab PO PRN (12:15)
--- NOTE | 2024-05-26 16:19 | NUR ---
SHIFT SUMMARY: PATIENT A/O TO SELF ONLY, CONFUSED AT TIMES AND TETLIN. PATIENT MEDICATED X1 c PRN FOR AGITATION PER EMAR c GOOD RESULT. PATIENT RECEIVED BEDBATH, LINEN CHANGED THIS SHIFT. MIPELEX DRESSING CHANGED TO BILAT ELBOW, MID SPINE, COCCYX AND BILAT HEEL. PATIENT Q2 TURN AND BLE'S ELEVATED ON PILLOWS T/O SHIFT. PATIENT HAS GOOD APPETITE, CONTIN/INCON OF BLADDER, USES URINAL c PULPER OPERATOR AND ATTENDS IN PLACED AND CHANGED PRN. VITAL SIGNS REVIEWED. BED ALARM ON FOR SAFETY. CALL LIGHT IN REACH.
[2024-05-26 16:33] VITALS: BP 107/67
[2024-05-26 19:36] VITALS: BP 107/82
[2024-05-27 02:22] VITALS: BP 105/59
--- NOTE | 2024-05-27 05:52 | NUR ---
SHIFT SUMMARY PT A&O TO SELF AND IS PLEASANTLY CONFUSED. ABLE TO MAKE NEEDS KNOWN. PT RECEIVED SCHEDULED MEDICATIONS WITH NO ADVERSE EFFECTS. VSS, NO COMPLAINTS OF CP/PRESSURE OR SOB. PT SPENT MOST OF SHIFT IN BED WITH EYES CLOSED AND RESPIRATIONS EVEN AND UNLABORED. Q2 HR REPOSITIONED. NO ACUTE EVENTS AT THIS TIME. PT LEFT IN A POSITION OF SAFETY WITH FALL PRECAUTIONS IN PLACE AND CALL LIGHT IN REACH.
[2024-05-27 07:32] VITALS: BP 127/81
[2024-05-27 16:09] VITALS: BP 106/69
--- NOTE | 2024-05-27 16:54 | NUR ---
SHIFT SUMMARY: PATIENT HAS HAD NO NEW ACUTE CHANGES THIS SHIFT. PATIENT CONTINUES TO BE A/O TO SELF ONLY, CONFUSED, BUT EASILY REORIENTABLE. PATIENT HAS MOD APPETITE, CONTIN/INCONT OF BLADDER, USES URINAL, ATTENDS IN PLACED AND CHANGED PRN. PATIENT CONTINENT OF BOWEL, AMBULATED TO BATHROOM X3 c 1 ASSIST/GAITBELT/FWW AND HAD LARGE BM THIS SHIFT. PATIENT RECEIVED SCHEDULED MEDS PER EMAR. VITAL SIGNS REVIEWED. BED ALARM ON FOR SAFETY. CALL LIGHT IN REACH. PATIENT SON (IVAN) VISITED TODAY AND LEFT $9.00 TO PATIENT. HILARIA HUNTER PLACED $9.00 IN SEALED ENVELOPED c NAME AND LOCKED IN PATIENT MED DRAWER.
[2024-05-27 19:57] VITALS: BP 139/75
--- NOTE | 2024-05-28 03:37 | NUR ---
SHIFT SUMMARY ORIENTED TO SELF ONLY, VERY CONFUSED WITH POOR SAFETY AWARENESS AND JUDGEMENT, HIGH RISK FALL PREVENTION INTERVENTIONS ONGOING INCLUDING BED ALARM,FREQUENT OBSERVATION AND FREQUENT REORIENTATION. PRN SEROQUEL GIVEN X1 OVERNIGHT AND WAS EFFECTIVE, HAS BEEN RESTING CALMLY FOR SEVERAL HOURS , SNACKS/FLUIDS OFFERED AND TAKEN WHILE AWAKE. VSS.
[2024-05-28 06:47] VITALS: BP 117/68
[2024-05-28 14:45] VITALS: BP 145/78
--- NOTE | 2024-05-28 17:17 | NUR ---
SHIFT SUMMARY: PATIENT HAS HAD NO NEW CHANGES THIS SHIFT. PATIENT A/O TO SELF ONLY, CONFUSED, YELLS OUT FOR DIRECTOR OF INSTITUTIONAL RESEARCH AND DOES NOT USES THE CALL LIGHT. PATIENT PLEASANT AND ABLE TO FOLLOW DIRECTION. PATIENT HAS MOD APPETITE, CONT/INCON OF BLADDER, USES URINAL c DIRECTOR OF INSTITUTIONAL RESEARCH, ATTENDS PLACED AND CHANGED PRN. VITAL SIGNS REVIEWED. PATIENT AWAITING FOR LTC PLACEMENT. BED ALARM ON FOR SAFETY. CALL LIGHT IN REACH.
[2024-05-28 19:52] VITALS: BP 115/62
--- NOTE | 2024-05-29 04:19 | NUR ---
SHIFT SUMMARY 83 YR M ADMITTED ON 05/18/24. DNR. NO ACUTE CHANGES THIS SHIFT. PT HAS HAD AN UNEVENTFUL SHIFT. HE SLEPT THROUGH THE NIGHT WITH NO EPISODES OF YELLING OUT, AND ONLY ATTEMPTED TO GET OUT OF BED W/O ASSISTANCE ONE TIME. EASILY REDIRECTABLE. NO C/O PAIN OR DISCOMFORT THIS SHIFT. WILL CONTINUE TO MONITOR. BED IN LOW POSITION WITH ALARM ON AND CALL LIGHT IN REACH.
[2024-05-29 04:49] VITALS: BP 156/78
[2024-05-29 08:39] VITALS: BP 116/74
[2024-05-29 15:39] VITALS: BP 118/73
--- NOTE | 2024-05-29 17:30 | NUR ---
PATIENT A/O TO SELF, UP WITH FWW AND SBA. VSS, ON RA. TOLERATING REGULAR DIET. AWAITING [facility] CARE PLACEMENT. NO NEW CONCERNS THIS SHIFT.
[2024-05-29 19:03] VITALS: BP 123/74
[2024-05-30 04:10] VITALS: BP 115/75
[2024-05-30 05:17] LABS: BASOPHILS ABSOLUTE AUTO 0.04 K/mm3 (0.00-0.23); BASOPHILS PERCENT AUTO 1 % (0-2); EOSINOPHILS PERCENT AUTO 3 % (0-6); Hematocrit 24.1 % (37.0-53.0); Hemoglobin 7.7 g/dL (13.5-17.5); IMMATURE GRAN ABSOLUTE AUTO 0.02 K/mm3 (0.00-0.10); IMMATURE GRAN PERCENT AUTO 0 % (0-1); LYMPHOCYTES ABSOLUTE AUTO 1.04 K/mm3 (0.84-5.20); LYMPHOCYTES PERCENT AUTO 17 % (21-46); MONOCYTES ABSOLUTE AUTO 0.33 K/mm3 (0.16-1.47); MONOCYTES PERCENT AUTO 6 % (4-13); Mean Corpuscular HGB 32.5 pg (26.0-34.0); Mean Corpuscular Volume 102 fL (80-100); Mean Platelet Volume 9.7 fL (9.1-12.4); NEUTROPHILS ABSOLUTE AUTO 4.36 K/mm3 (1.96-9.15); NEUTROPHILS PERCENT AUTO 73 % (41-73); Platelet Count 251 K/mm3 (150-400); RDW Coefficient Variation 17.1 % (11.7-14.2); RDW Standard Deviation 61.4 fL (35.1-46.3); Red Blood Cell Count 2.37 M/mm3 (4.30-5.90); White Blood Cell Count 5.99 K/mm3 (4.00-11.30)
[2024-05-30 05:54] LABS: Bun/Creatinine Ratio 22.9 (12.0-20.0); Calcium, Blood 8.5 mg/dL (8.5-10.1); Creatinine, Blood 0.79 mg/dL (0.60-1.20); Potassium, Blood 4.1 mmol/L (3.5-5.5)
[2024-05-30 07:16] VITALS: BP 105/86
--- NOTE | 2024-05-30 11:00 | NUR ---
Assisted OT w/ROM exercises using resistance bands. Observed improvement in patient's facial color, transitioned to a more normal hue. Patient education provided on therapeutic value of continued ROM exercises. Patient given resistance bands by OT for ongoing use. Patient demonstrated enthusiasm on continued indepent ROM exercises.
[2024-05-30 14:22] VITALS: BP 131/68
--- NOTE | 2024-05-30 19:24 | NUR ---
assumed care of pt pt is a/o x 2 very pleasent and cooperative with care. pt has no c/o pain nor shows any distress, assisted up to chair and was able to feed self breakfast and lunch as well as worked with ot today. OT worked with pt today, also student worked with pt today. eventful day for pt. awaiting buttermaker care placement.
[2024-05-30 19:59] VITALS: BP 124/71
--- NOTE | 2024-05-31 03:52 | NUR ---
SHIFT SUMMARY no acute changes this shift. pt slept for most of the night but woke up confused a couple of times stating that he had to get up and get ready because he had alot of things to do today. he is easily redirectable and with kind words and encouragement it is easy to lift his spirits. will continue to monitor. bed in low position and call light in reach.
[2024-05-31 05:28] VITALS: BP 119/72
[2024-05-31 07:20] VITALS: BP 129/86
--- NOTE | 2024-05-31 17:46 | NUR ---
SHIFT SUMMARY PT A&OX2, VSS, AMB W/ ASSIST, TOLERATED BREAKFAST BUT NOT LUNCH, IS VOIDING, AND DENIED PAIN. CALL LIGHT WITHIN REACH AND BED ALARM ON FOR SAFETY.
[2024-05-31 19:16] VITALS: BP 143/75
[2024-05-31] MEDS ORDERED: Mirtazapine 15 MG Tab PO SCH (21:00)
--- NOTE | 2024-06-01 03:40 | NUR ---
SHIFT SUMMARY UNEVENTFUL SHIFT WITH NI INCIDENTS OR EVENTS. , RESTING WELL, PLEASANTLY CONFUSED WHILE AWAKE, APPETITE IMPROVED EASILY REDIRECTED WITH REORIENTATION NEEDED, VSS, FLUIDS ENCOURAGED W/A.
[2024-06-01 06:26] VITALS: BP 127/70
[2024-06-01 07:13] VITALS: BP 141/69
[2024-06-01 14:45] VITALS: BP 133/60
--- NOTE | 2024-06-01 18:46 | NUR ---
SHIFT SUMMARY NO ACUTE CHANGES THIS SHIFT. CALL LIGHT WITHIN REACH AND BED ALARM ON FOR SAFETY.
[2024-06-01 21:28] VITALS: BP 134/56
[2024-06-02] VITALS (10 sets, daily range): BP systolic 91–148; BP diastolic 40–97
--- NOTE | 2024-06-02 04:04 | NUR ---
ORIENTED TO PERSON AND PLACE, EASILY RE-DIRECTED. BED ALARM ON, PT DOES NOT USE CALL LIGHT. SBA X 1. SLEPT WELL THROUGHOUT THE NIGHT WITHOUT ANY ACUTE CONCERNS.
--- NOTE | 2024-06-02 17:57 | NUR ---
SHIFT SUMMARY PT CONT LEVEL OF CARE WITH NO ACUTE CHANGES NOTED. PT ONLY ALERT TO SELF. PT NOTED TO BE IMPULSIVE ALARMS IN PLACE. PT WAS GIVEN PRN DOSE OF SEROQUEL THIS TO HELP WITH ANXIETY AND AGGITATION.
--- NOTE | 2024-06-02 19:23 | NUR ---
SHIFT SUMMARY PT NOTED TO HAVE AN UNWITNESSED FALL AT 183. PT WAS NOTED TO BE YELLING FOR HELP PT WAS FOUND ON FLOOR LAYING ON LEFT SIDE WITH HIS HEAD TOWARD THE BOTTOM OF HIM BED. PT WAS ASSISTED UP TO BED. VS AND SKIN CHECK OBTAINED. PT NOTED TO HAVE 2 NEW SKIN TEARS TO L ARM PICTURES TAKEN AND PLACED IN CHART. SKIN WAS APPROXIMATED BACK TOGETHER STERI STRIP AND TEGADERM APPLIED PHYSICIAN NOTIFIED WITH NO NEW ORDERS.
[2024-06-03 00:10] VITALS: BP 116/58
[2024-06-03 04:30] VITALS: BP 143/70
--- NOTE | 2024-06-03 04:32 | NUR ---
SHIFT SUMMARY PATIENT HAS BEEN SLEEPING INTERMITTANTLY BETWEEN NURSING CARE. HE IS IMPULSIVE AND HAS SET HIS BED ALARM OFF A COUPLE OF TIMES TONIGHT. HE HAD A FALL ON DAY SHIFT AND HIS VITAL SIGNS AND NEURO STATUS HAS BEEN MONITORED PER PROTOCOL TONIGHT. VSS AND NO NEURO CHANGES NOTED. PATIENT IS ORIENTED X2. BED ALARM REMAINS ON. SAFETY PRECATIONS ARE BEING MAINTAINED.
[2024-06-03 07:37] VITALS: BP 126/91
[2024-06-03 15:27] VITALS: BP 136/97
--- NOTE | 2024-06-03 18:18 | NUR ---
PT AOX1 AND IMPULSIVE WITH MILD HALLUCINATIONS THINKING HE IS TALKING WITH SOMEONE NOT IN ROOM. PT HAS NEEDED BED AND CHAIR ALARM. PT WILL CALL OUT WHEN HE NEEDS THE RESTROOM. NEURO CHECKS WHERE NEGATIVE AND PT IS DOING WELL. BED ALARM IS IN PLACE WILL CONTINUE TO MONITOR.
[2024-06-03 19:53] VITALS: BP 118/61
[2024-06-04] VITALS (7 sets, daily range): BP systolic 111–144; BP diastolic 63–93
--- NOTE | 2024-06-04 03:25 | NUR ---
COTTON FACTOR SUMMARY: PT ADMITTED FOR FAILURE TO THRIVE. AWAITING PLACEMENT. PT A&O TO SELF, PLEASANTLY CONFUSED. CALLS OUT AT TIMES FOR TOILETING NEEDS. NEEDS ALSO ANTICIPATED BY STAFF. AT APPROX 2325 PT'S BED ALARM GOING OFF AND PT DISCOVERED TO BE USP OOB WITH LEGS BETWEEN SIDE RAILS. NO INJURIES NOTED. PT DENIES PAIN. TOILETING OFFERED AFTER ASSISTING PT BACK INTO BED. PT HAS BEEN SLEEPING T/O SHIFT SINCE ABOVE EVENT. BED ALARM ON. BED IN LOWEST POSITION. FREQUENT VISUAL SAFETY CHECKS DONE T/O SHIFT. CARES CONTINUE ORDERED.
--- NOTE | 2024-06-04 14:23 | NUR ---
PATIENT LOGAN ALARM SOUNDING; PRIMARY RN AND INTENSIVE CARE ANAESTHETIST IN ADJACENT ROOM WITH ADMIT IN MID-TRANSFER. THIS RN TO ROOM AND FOUND PATIENT SUPINE JUST INSIDE TO THE LEFT OF THE ENTRY DOOR, LYING BENEATH THE COMPUTER WITH THE TOP OF HIS HEAD UP AGAINST THE WALL. DENIED LOSS OF CONSCIOUSSNESS, PAIN, OR DIZZINESS AND REPORTED LOSING HIS BALANCE. PATIENT REPEATEDLY ATTEMPTING TO GET UP OFF OF FLOOR AND NOT FOLLOWING DIRECTION TO WAIT. PRIMARY RN TO ROOM c GAIT BELTTHIKilo RN AND TWO OTHERS APPLIED GAIT BELT AND LIFTED PATIENT FROM FLOOR TO RECLINER. VITAL SIGNS OBTAINED. SOME SOB NOTED; SPO2 INITIALLY 81% RA AND RAISED TO 90% WITH SOME CUES TO SLOW BREATHING. PRIMARY RN ASSESSED FOR WOUNDS OR PAIN. BREAK NURSE NOTIFIED PROVIDER. NO NEW WOUNDS NOTED. NO C/O PAIN OR DISCOMFORT ASIDE FROM DYSPNEA WHICH ULTIMATELY RESOLVED.
--- NOTE | 2024-06-04 17:13 | NUR ---
PT CONTINUES TO BE AOX1 AND IMPULSIVE WITH CARE. PT DOESN'T USE CALL LIGHT AND HAD ANOTHER FALL WHEN AID AND NURSE WERE IN OTHER PT ROOMS. SEE CHART NOTES. PT RECIEVED NOT INJURY AND HAS BEEN RESTING IN BED WATCHING TV. NEGATIVE NEURO CHECK. CALL LIGHT AND BED ALARM IS IN PLACE. MEETING WITH CHARGE AND SITTER IS BEING ARRANGED AND CHANGE OF ROOM. WILL CONTINUE TO MONITOR.
--- NOTE | 2024-06-04 22:03 | NUR ---
TRANSFER NOTE: PT TRANSFERED FROM FLOOR TO SCU. PT AOX2-3 PLEASANTLY CONFUSED. IN PLEASANT MOOD AND AFFECT. ORIENTED TO ROOM AND INSTRUCTED TO CALL IF NEED BE. BED ALARM ON. PT COOPERATIVE IN CARE AND DOESNT WANT TO FALL AGAIN. PT RESTING IN BED, BED IN LOWEST POSITION, CALL LIGHT IN REACH. CONT CARE.
--- NOTE | 2024-06-05 05:15 | NUR ---
SHIFT SUMMARY: PT AOX2 TO SELF AND PLACE, FORGETS WHY HE IS HERE AND FORGETS LIMITATIONS. TRANSFERRED TO SCU FROM THE FLOOR DUE TO REGULARLY FALLING. HAS BEEN SLEEPING ALL NIGHT. WHEN HE WAKES UP SHOUTS AND IS CONFUSED BUT IS EASILY REORIENTED AND IS PLEASANTLY CONFUSED AT THAT. TOLERATING MEDS WELL AND HAS BEEN STAYING IN BED. NO ACUTE EVENTS OVERNIGHT. PT IN BED SLEEPING, BED ALARM ON, BED IN LOWEST POSITION, CALL LIGHT IN REACH. CONTINUING CARE.
[2024-06-05 06:06] VITALS: BP 141/82
[2024-06-05 06:44] LABS: Hematocrit 27.7 % (37.0-53.0); Hemoglobin 8.6 g/dL (13.5-17.5); Mean Corpuscular HGB 32.5 pg (26.0-34.0); Mean Corpuscular Volume 105 fL (80-100); Mean Platelet Volume 9.8 fL (9.1-12.4); Platelet Count 299 K/mm3 (150-400); RDW Coefficient Variation 17.6 % (11.7-14.2); RDW Standard Deviation 67.4 fL (35.1-46.3); Red Blood Cell Count 2.65 M/mm3 (4.30-5.90); White Blood Cell Count 3.87 K/mm3 (4.00-11.30)
[2024-06-05 07:16] LABS: Bun/Creatinine Ratio 25.8 (12.0-20.0); Calcium, Blood 8.3 mg/dL (8.5-10.1); Creatinine, Blood 0.62 mg/dL (0.60-1.20); Potassium, Blood 4.1 mmol/L (3.5-5.5)
[2024-06-05 07:41] VITALS: BP 166/107
[2024-06-05 08:37] VITALS: BP 140/74
[2024-06-05 16:11] VITALS: BP 123/65
[2024-06-05 19:47] VITALS: BP 123/73
--- NOTE | 2024-06-05 23:34 | NUR ---
NURSING NOTE: PT AOX2-3 ABD APPEARED DISTENDED, INSTRUCTED THE PT TO ATTEMPT TO VOID IN URINAL, ONLY VOIDED ABOUT 150. BLADDER SCAN SHOWED 1237, ATTEMPTED TO VOID AGAIN ONLY VOIDED ABOUT 150. PROVIDER NOTIFIED AND INSTRUCTED TO STRAIGHT CATH. PT TOLERATED WELL AND HAD ABOUT 1300 IN OUTPUT VIA STRAIGHT CATH. PT STATES TO BE FEELING BETTER. EDUCATED ON PROCEDURE AND RECEPTIVE. PT SLEEPING IN BED, BED IN LOWEST POSITION, CALL LIGHT IN REACH. CONTINUING CARE.
[2024-06-06 03:12] VITALS: BP 142/89
--- NOTE | 2024-06-06 04:15 | NUR ---
SHIFT SUMMARY: PT AOX2-3 BUT CONFUSED, AND IMPULSIVE, EASILY REDIRECTABLE AND VERY PLEASANT WHEN REDIRECTED. HAD SOME ACUTE URINARY RETENTION, DETAILED IN PREVIOUS NURSING NOTE. PT BLADDER SCANNED AND STRAIGHT CATHED WITH LARGE OUTPUT. PT TOLERATED PROCEDURE WELL. PT MEDICATED FOR PAIN PER EMR AND COOPERATIVE IN CARE. THOUGH HE FORGETS TO CALL. PLACED ON 2L OF O2 FOR COMFORT. PT IN BED SLEEPING, CALL LIGHT IN REACH, BED IN LOWEST POSITION. CONTINUING CARE.
[2024-06-06 07:32] VITALS: BP 135/78
[2024-06-06] MEDS ORDERED: Tamsulosin HCl 0.4 MG Cap PO SCH (09:00)
[2024-06-06] MEDS ORDERED: ELIQUIS2.5 MG PO (14:19)
[2024-06-06] MEDS ORDERED: POTCHL20ER PO (14:20)
[2024-06-06] MEDS ORDERED: TIOT18 INH (14:20)
[2024-06-06] MEDS ORDERED: EUTHYROX50 MCG PO (14:20)
[2024-06-06] MEDS ORDERED: Tiotropium Bromide 2.5 MCG/ACT MIST INHAL (10 ACT/4 GM) INH SCH (14:35)
--- NOTE | 2024-06-06 15:12 | NUR ---
PT REFUSING STRAIGHT CATH AT THIS TIME.
[2024-06-06 15:37] VITALS: BP 145/79
--- NOTE | 2024-06-06 18:05 | NUR ---
SHIFT SUMMARY PT PLEASANTLY CONFUSED THIS MORNING. BECAME RESTLESS MIDDAY, MEDICATED WITH SEROQUEL. PT INTERVIEWED BY ADULT PROTECTIVE SERVICES TODAY, BECAME AGITATED AFTERWARDS, REFUSED STRAIGHT CATH AT THIS TIME. PT MEDICATED WITH SEROQUEL AGAIN AND WAS AGREEABLE TO STRAIGHT CATH AFTER. SOME BLOOD NOTED IN PULLUP AND AT THE START OF THE STRAIGHT CATH. NO BLOOD SEEN AFTER REMOVAL OF CATHETER. NO OTHER ACUTE CHANGES IN ASSESSMENT AT THIS TIME. VS REIVEWED. PT DENIES PAIN THIS SHIFT. HOME MED REC UPDATED AND COMPLETED TODAY. DR MARTINEZ NOTIFIED OF THIS.
[2024-06-06 19:33] VITALS: BP 108/87
[2024-06-07 04:50] VITALS: BP 94/56
--- NOTE | 2024-06-07 05:02 | NUR ---
SHIFT SUMMARY: PT AOX1-2 ORIENTED TO SELF AND PERSON, FORGETS WHERE HE IS AND IMPULSIVE BUT REORIENTABLE. SLEPT WELL. PLEASANT MOOD AND AFFECT. PT HADNT VOIDED, BLADDER SCANNED PER PROTOCOL. STRAIGHT CATHED AFTER PT COULDNT VOID. PT TOLERATED PROCEDURE WELL. TOLERATING MEDICATIONS WELL. COMPLAINTS OF SOB BUT SATTING WELL, ON 1L NC FOR COMFORT, TAKES OFF OCCASIONALLY. NO ACUTE EVENTS OVERNIGHT. PT RESTING IN BED, BED IN LOWEST POSITION, CALL LIGHT IN REACH. CONTINUING CARE.
[2024-06-07 07:04] VITALS: BP 109/61
--- NOTE | 2024-06-07 10:27 | NUR ---
PT HAS 500 CC IN BLADDER, PT HAS BEEN STRAIGHT CATH >[address] MICHELLE BATISTA [address] PL[address] YOO CATH
[2024-06-07 16:33] VITALS: BP 120/93
--- NOTE | 2024-06-07 17:02 | NUR ---
NO ACUTE CHANGES THIS SHIFT. PT IS ALERT AND CONFUSED. EASILY REDIRECTABLE. IMPULSIVE AT TIMES. UP INTO CHAIR FOR MEALS. PT IS COOPERATIVE AND PLEASANT. 2L NC. WOKE FROM NAPS YELLING OUT SOUNDING SCARED.
[2024-06-07 19:36] VITALS: BP 105/53
[2024-06-08 04:32] VITALS: BP 96/48
--- NOTE | 2024-06-08 07:22 | NUR ---
SHIFT SUMMARY PT HAS BEEN WAKING UP TALKING TO HIMSELF THROUGHOUT NIGHT. DURING EVENING MED PASS, PT GRABBED THIS RN S HAND AND ATTEMPTED TO TAKE A DRINK OF HIS WATER THROUGH THIS RN S HAND. EXPLAINED TO PT THAT HIS WATER BOTTLE WAS IN THIS RN S OTHER HAND, AND HE NEEDED TO LET GO AND USE HIS WATER BOTTLE TO TAKE HIS MEDICATION. PT CONTINUES TO SLEEP OFF AND ON, WAKING AND TALKING TO HIMSELF. PT THREW ALL OF HIS BLANKETS ON FLOOR. COMPLAINED OF BEING COLD. THIS RN COVERED HIM BACK UP. PT RESTING IN BED. CALL LIGHT IS WITHIN REACH. NO FURTHER COMPLAINTS OF PAIN OR DISCOMFORT AT THIS TIME.
[2024-06-08 07:44] VITALS: BP 91/47
[2024-06-08 17:19] VITALS: BP 106/74
--- NOTE | 2024-06-08 18:43 | NUR ---
ASSUMED CARE OF PT. A/O X 1 AND AT TIME 2 VERY PLEASENT AND COOPERATIVE WITH CARE. PT DID REFUSE MEDICATIONS THIS MORNING AND REQUESTED THAT HE WOULD BE ALLOWED TO SLEEP. AT LUNCH PT WAS ASSISTED TO CHAIR, PT FED SELF AND HAD MINIMAL PAIN. PT WAS ALSO ASSISTED TO BSC IN ATTEMPT TO HAVE A BM, PT VERY CONSTIPATED AND REQUESTED SUPPOSITORY. I ASSISTED BACK TO BED AND PT FELL ASLEEP. PT REFUSED DINNER AND DID NOT WANT TO GET OUT OF BED, PT IS CURRENTLY SLEEPING, BED CHECK IN PLACE AND YOO DRAINING WELL.
[2024-06-08 21:06] VITALS: BP 118/69
--- NOTE | 2024-06-09 08:01 | NUR ---
SHIFT SUMMARY PT REFUSING ALL MEDICATIONS. SAYS HE THINKS HE "MIGHT WANT TO BE DONE WITH ALL OF THIS". PALLIATIVE INVOLVED ALREADY. REMINDED PT THAT IT IS HIS RIGHT TO CHOSE HOW HIS TREATMENT TAKES PLACE. PT SLEPT THROUGH NIGHT. WOKE TO USE BSC.WILL RELAY TO DAY SHIFT.
[2024-06-09 08:11] VITALS: BP 94/54
[2024-06-09 15:57] VITALS: BP 106/62
--- NOTE | 2024-06-09 17:47 | NUR ---
SHIFT SUMMARY PT CONT LEVEL OF CARE WITH NO ACUTE CHANGES NOTED. PT NOTED TO BE A&O TO SELF ONLY. PT CONT TO UTILIZE YOO FOR RETENTION. YOO DRAINING AMANDA COLOR URINE. PT NOTED TO HAVE A LG HARD BM THIS SHIFT. PT WAS WILLING TO TAKE MEDICATION FOR THIS NURSE THIS SHIFT. CONT TO AWAIT PLACEMENT.
[2024-06-09 20:30] VITALS: BP 89/56
[2024-06-09 20:34] VITALS: BP 95/53
--- NOTE | 2024-06-10 04:02 | NUR ---
SHIFT SUMMARY PATIENT HAS APPEARED TO SLEEP COMFORTABLY DURING THE NIGHT. HE HAS DENIES PAIN. PATIENT TOOK HIS MEDICATION WITHOUT ANY PROBLEM TONIGHT. HE ALSO HAD A ROOTBEER FLOAT DURING THIS SHIFT. PATIENT IS ORIENTED X1. HE HAS HIS CALL LIGHT WITHIN REACH AND HIS BED ALARM IS SET. SAFETY PRECAUTIONS ARE BEING MAINTAINED.
[2024-06-10 04:29] VITALS: BP 117/65
[2024-06-10 07:47] VITALS: BP 97/62
[2024-06-10 15:16] VITALS: BP 134/76
--- NOTE | 2024-06-10 17:59 | NUR ---
SHIFT SUMMARY PT CONT LEVEL OF CARE. PT NOTED TO BE ALERT TO SELF ONLY. PT NOTED TO HAVE VISUAL HULLICINATION THIS SHIFT. CONT TO AWAIT ON PLACEMENT. YOO REMAINS INTACT AND DRAINING AMANDA COLOR URINE.
[2024-06-10 19:52] VITALS: BP 125/71
--- NOTE | 2024-06-11 03:18 | NUR ---
SHIFT SUMMARY PATIENT VERY CONFUSED AND HALLUCINATING AT THE BEGINNING OF THE SHIFT. HE GOT HIS MIRTAZIPINE AND EVENTUALLY WENT TO SLEEP FOR THE NIGHT. VITAL SIGNS HAVE BEEN STABLE. PATIENT IS ORIENTED X1 AND IMPULSIVE. BED ALARM IS SET. SAFETY PRECAUTIONS ARE BEING MAINTAINED.
[2024-06-11 04:30] VITALS: BP 113/51
[2024-06-11 15:32] VITALS: BP 123/66
--- NOTE | 2024-06-11 16:43 | NUR ---
NOTE PT GOT AGITATED, BED ALARM GOING OFF, PT IMPULSIVE TRYING TO GET OUT OF BED, BED ALARM ON. COMMUNICATED TO PRIMARY RN WOULD GIVE PT 6PM DOSE OF SEREQUEL PER ORDER.
--- NOTE | 2024-06-11 18:25 | NUR ---
SHIFT SUMMARY PT CONT LEVEL OF CARE WITH NO ACUTE CHANGES NOTED. PT NOTED TO BE IMPULSIVE THIS SHFIT AND ATTEMPT TO GET OUT OF BED SEVERAL TIMES. PT WAS GIVEN ROUTINE DOSE OF SEROQUEL WITH LITTLE EFFECTIVENESS. PT REFUSED TO EAT SUPPER THIS SHIFT BUT AGREED TO TRY AND DRINK HIS ENSURE.
[2024-06-11 21:14] VITALS: BP 105/57
--- NOTE | 2024-06-12 03:52 | NUR ---
SHIFT SUMMARY PATIENT HAS APPEARED TO SLEEP COMFORTABLY TONIGHT. HE IS CONFUSED AND HAS PERIODS WHERE HE IS VERY IMPULSIVE. VITAL SIGNS ARE STABLE YOO CATHETER IS PATENT. BED ALARM IS SET. SAFETY PRECAUTIONS ARE BEING MAINTAINED.
[2024-06-12 08:12] VITALS: BP 137/70
[2024-06-12 15:57] VITALS: BP 138/85
--- NOTE | 2024-06-12 18:28 | NUR ---
PT CONTINUES TO BE VERY MINIMAL EATING. DOES DO OKAY WITH ENSURES. FAMILY IN TO VISIT TODAY. REMAINS CONFUSED BUT PLEASANT. LUNGS DIM AND WHEEZY T/OUT. NO NEW CONCERNS NOTED. BED IN LOW POSITION, CALL LITE IN REACH, BED ALARM ON F OR SAFETY
[2024-06-12 20:00] VITALS: BP 122/72
--- NOTE | 2024-06-13 04:32 | NUR ---
SHIFT SUMMARY PATIENT HAS BEEN AWAKE FOR MUCH OF THE NIGHT. HE IS STARTING TO GET AGGITATED. 25 MG OF PRN SEROQUEL HAS BEEN ADMINISTERED. BED ALARM IS SET. PATIENT IS HALLUCINATING. SAFETY PRECAUTIONS ARE BEING MAINTAINED.
[2024-06-13 04:45] VITALS: BP 102/88
[2024-06-13 06:28] LABS: Hematocrit 24.6 % (37.0-53.0); Hemoglobin 7.8 g/dL (13.5-17.5)
[2024-06-13 06:55] LABS: Bun/Creatinine Ratio 31.5 (12.0-20.0); Calcium, Blood 8.6 mg/dL (8.5-10.1); Creatinine, Blood 0.57 mg/dL (0.60-1.20); Magnesium, Blood 1.9 mg/dL (1.6-2.4)
[2024-06-13 07:12] VITALS: BP 105/70
--- NOTE | 2024-06-13 18:01 | NUR ---
SHIFT NOTE: PT UP T/O DAY IN CHAIR WITH ALARM IN PLACE. HE DOES NOT FOLLOW COMMANDS AND NEEDS 2P ASSIST WITH TRANSFERS WITH THE GAIT BELT AND FWW. HE IS A/OX SELF ONLY AND HAS BEEN SETTING THE ALARM OFF FREQUENTLY. HE IS ON 3L NC BUT TAKES IT OFF FREQUENTLY. HE HAS A YOO FOR RETENTION DRAINING TO GRAVITY. SAFETY MEASURES IN PLACE FOR SAFETY, CARE CONTINUES
[2024-06-13 19:34] VITALS: BP 140/84
--- NOTE | 2024-06-14 05:03 | NUR ---
SHIFT SUMMARY PT ALERT TO SELF. CONFUSED AND OCCASIONALLY YELLS OUT. NO C/O PAIN. FOELY IN PLACE AND DRAINING TO GRAVITY. NO IV ACCESS ORDER. NO TELE. RT AT BIDESIDE AT START OF SHIFT. PT FINALLY ABLE TO FALL ASLEEP AROUND 2300. PT APPEARED TO SLEEP MOST OF THE NIGHT. BED ALARM ON. BED IN LOWEST POSITION AND CALL LIGHT IN REACH.
[2024-06-14 06:02] VITALS: BP 118/61
[2024-06-14 07:23] VITALS: BP 123/67
[2024-06-14] MEDS ORDERED: Megestrol Acetate Susp 400MG/10ML UDC PO SCH (11:00)
--- NOTE | 2024-06-14 13:35 | NUR ---
CASE CONFRENCE MET WITH DIETITION TO UPDATE ON CHANGE OF MEDICATION. APPETITE STIMULANT WAS ADDED BY PROVIDER. DISCUSSED DIET PLAN.
[2024-06-14 16:06] VITALS: BP 105/94
--- NOTE | 2024-06-14 17:32 | NUR ---
SHIFT SUMMARY PT ALERT TO SELF, IMPULSIVE AT TIMES. BA ON, UP TO THE CHAIR TODAY WITH THE CA ON, USING THE FWW. NO ACUTE COMPLAINTS. BOWEL CARE MEDS GIVEN PER THE EMAR. PT REPOSITIONED THROUGHOUT THE SHIFT, PT CAN ALSO REPOSITION SELF AT TIMES. CALLS SOMETIMES. YOO PATENT AND DRAINING. CALL LIGHT WITHIN REACH, BED LOCKED AND IN THE LOWEST POSITION. WILL REPORT TO ONCOMING NURSE.
[2024-06-14 19:33] VITALS: BP 112/86
--- NOTE | 2024-06-15 04:49 | NUR ---
SHIFT SUMMARY PT ALERT TO SELF. PT TIRED DURING SHIFT ASSESSMENT AND VERBALIZED WANTING TO SLEEP. PT REFUSED NIGHT TIME MEDICATIONS. PT ATE VERY LITTLE DINNER. PT STILL UNABLE TO HAVE BM. SLEPT MOST OF THE NIGHT. BED ALARM ON. BED IN LOWEST POSITION AND CALL LIGHT IN REACH.
[2024-06-15 05:26] VITALS: BP 115/57
[2024-06-15] MEDS ORDERED: Ferrous Gluconate 325 MG Tablet PO SCH (09:00)
[2024-06-15 09:13] VITALS: BP 110/82
--- NOTE | 2024-06-15 17:47 | NUR ---
SHIFT SUMMERY PT ALERT AND OREINTED X2 THROUGHOUT THIS SHIFT. BA ON AT ALL TIMES, UP TO CHAIR FOR MEALS WITH CA ON. BOWEL CARE MEDS GIVEN PER THE EMAR WITH SUCCESS OF LARGE BOWEL MOVEMENT THIS AFTERNOON 06/15/24. YOO PATENT AND DRAINING, STAT-LOCK REPLACED. PT VERY PLEASANT THIS SHIFT WITH MINIMAL CONFUSION. CALL LIGHT WITHIN REACH, BED LOCKED AND IN LOWEST POSITION. WILL REPORT TO ONCOMING NURSE.
[2024-06-15 19:27] VITALS: BP 110/53
[2024-06-16 04:02] VITALS: BP 112/57
--- NOTE | 2024-06-16 05:00 | NUR ---
SHIFT SUMMARY PT ALERT TO SELF. AT START OF SHIFT PT BELIEVED HE HAD BEEN DRIVING FOR HOURS. DINNER WAS ALREADY SET UP BUT PT DECLINED ANY OFFERS OF FOOD OR DRINK. PT'S CURRENT BED SCALE WEIGHT IS 53.4kg. NO ACUTE CHANGES. BED ALARM ON. BED IN LOWEST POSITION AND CALL LIGHT IN REACH.
[2024-06-16 09:59] VITALS: BP 109/61
[2024-06-16 14:58] VITALS: BP 125/73
[2024-06-16 16:32] LABS: Source, Urine Foley catheter
[2024-06-16 16:38] LABS: Appearance, Urine Cloudy (Clear); Bilirubin, Urine Neg (Neg); Blood, Urine 5+ (Neg); Glucose Qualitative, Urine Neg (Neg); Ketones, Urine Neg (Neg); Leukocyte Esterase, Urine 3+ (Neg); Nitrite, Urine Pos (Neg); Protein, Urine 3+ (Neg); Urobilinogen, Urine NORM (Normal)
[2024-06-16 16:52] LABS: Color, Urine Red (P-Yellow)
[2024-06-16 16:54] LABS: Red Blood Cells, Urine TNTC /hpf (0-2); White Blood Cells, Urine TNTC /hpf (0-5)
[2024-06-16 16:57] LABS: Bacteria Many /hpf; Squamous Epithelial Cells Few /hpf (Few)
[2024-06-16 16:58] LABS: Renal Epithelial Rare /hpf (0-Rare)
--- NOTE | 2024-06-16 18:23 | NUR ---
PT ORIENTED TO SELF ONLY, PLEASANTLY CONFUSED WITH VISUAL HALLUCINATIONS. ON 2L O2 VIA NC, REMOVES FREQUENTLY, ACTIVITY APRON PROVIDED. PT REFUSED LUNCH TODAY. VSS, CALLS BY YELLING OUT TO STAFF. NO BM THIS SHIFT, ABDOMEN DISTENDED, BOWL SOUNDS HYPOACTIVE. YOO IN PLACE DRAINING MAROON URINE WITH SEDIMENT, NOTIFIED, URINALYSIS ORDERED AND COMPLETED. PT COOPERATIVE WITH CARES, CALL LIGHT IN REACH, BED ALARM ON FOR SAFETY.
[2024-06-16 19:24] VITALS: BP 124/66
[2024-06-16] MEDS ORDERED: NS 1,000 ML IV SCH (23:00)
[2024-06-17] MEDS ORDERED: CefTRIAXone Sodium 1,000 MG in NS 100 ML IV SCH (00:15)
[2024-06-17 03:07] VITALS: BP 115/70
--- NOTE | 2024-06-17 04:08 | NUR ---
EXECUTIVE MEETING MANAGER SUMMARY WITH HOSPITALIST CONTACT PT A/OX TO SELF ONLY. PT HAS BEEN IN BED T/O THE SHIFT. VITALS REVIEWED AND STABLE. BED ALARM HAS BEEN IN PLACE AND PT ON 2LPM OF OXYGEN VIA NASAL CANNULA. PT IS CONFUSED AND FREQUENTLY TAKING OFF OXYGEN. PT IS NOT IMPULSIVE--NOT ATTEMPTING OOB. PT IS THIN AND FRAIL APPEARING. SKIN AND ORAL MUCOUSA IS VERY DRY. UA COLLECTED DURING DAY SHIFT FROM YOO CATH IS POSITVE FOR UTI. PER REPORT PT'S ORAL INTAKE FOOD AND FLUIDS IS VERY POOR. PT HAS NOT ATTEMPTED TO DRINK ANY FLUIDS THIS SHIFT--ENCOURAGED DRINKING NOR ASK FOR FOOD. PHONE CALL TO WELDING MACHINE OPERATOR [employer]; SPOKE TO DR BRAMBILA. NEW ORDER FOR NS 75MLS HOUR X1 BAG AND NEW ORDER FOR ROCEFIN TO TX UTI. PT DOES NOT HAVE ORDER FOR PT, OT, OR ST. PER REPORT PT IS NOW REQUIRING ASSIST TO FEED. PT HAS ACTIVIY ORDERS TO AMBULATE 4X A DAY HOWEVER, PT IS MAX ASSIST OOB. CALL TO ON ALL, SPOKE WITH DR SCHULER. REQUESED ORDER FOR PT, OT AND ST TO EVAL/REVAL DUE TO CHANGES. NEW IV PLACED IN LEFT FA. PT TOLERATED WELL. PT REPOSITIONED T/O THE SHIFT. REGULAR INTERVAL ROUNDING T/O SHIFT. WILL CONT TO MONITOR UNTIL REPORT GIVEN TO ONCOMING NURSE.
[2024-06-17 07:17] VITALS: BP 132/57
[2024-06-17 15:56] VITALS: BP 134/89
--- NOTE | 2024-06-17 18:25 | NUR ---
CONFUSION AND AGGRESSION INCREASED THIS PM, MEDICATED WITH SCHEDULED AND PRN SEROQUEL, PATIENT HALLUCINATING VISUALLY AND AUDITORY THIS FATERNOON. ST REPORTED TO NO STRAWS, POOR PERFUSION IN FINGER TIPS, EAR LOBE SAT MONITOR IN ROOM, PATIENT POCKETS AND CHEWS MEDICATIONS. UNABLE TO REDIRECT AT TIMES, BED ALARM ON, CALL LIGHT WITH IN REACH, YELLS OUT AT TIMES, WILL RELAY TO PM RN
[2024-06-17 19:43] VITALS: BP 124/82
[2024-06-18 03:47] VITALS: BP 131/91
[2024-06-18 04:08] VITALS: BP 119/69
--- NOTE | 2024-06-18 06:13 | NUR ---
SHIFT SUMMARY PT EXTREMELY CONFUSED. WHEN RECEIVING HIS MEDICATIONS, PT HAD DIFFICULTY SWALLOWING THEM. TOOK MANY TRIES, AND PT GAGGED AND CHOKED ON PILLS SLIGHTLY. HOLDING AM PO MEDS D/T CLINICAL JUDGEMENT. PT KEEPS SLIDING DOWN IN BED. THIS RN AND MODERN LANGUAGES PROFESSOR REPOSITIONED PT. PT SLEPT THROUGH THE REST OF THE NIGHT.
[2024-06-18 07:43] VITALS: BP 154/78
[2024-06-18] MEDS ORDERED: LORazepam 2 MG/ML 1ML Injection IV PRN (13:05)
[2024-06-18 15:37] VITALS: BP 142/84
[2024-06-18 15:53] LABS: Source, Urine Foley catheter
[2024-06-18 15:55] LABS: Appearance, Urine Hazy (Clear); Bilirubin, Urine Neg (Neg); Blood, Urine 5+ (Neg); Color, Urine Yellow (P-Yellow); Glucose Qualitative, Urine Neg (Neg); Ketones, Urine Neg (Neg); Leukocyte Esterase, Urine 2+ (Neg); Nitrite, Urine Neg (Neg); Protein, Urine 2+ (Neg); Urobilinogen, Urine NORM (Normal); pH, Urine 6.5 (5.0-8.0)
[2024-06-18 16:12] LABS: Bacteria Few /hpf; Red Blood Cells, Urine 25-50 /hpf (0-2); Squamous Epithelial Cells Rare /hpf (Few); Yeast/Fungi Urine Many /hpf
--- NOTE | 2024-06-18 18:27 | NUR ---
PATIENT SWALLOWING FUNCTION DECREASED, ENCOURAGED FOOD AND ENSURE, PATIENT EATS MINIMAL AMOUNTS. POOR SWALLOW WITH MEDICATIONS CRUSHED IN APPLE SAUCE, UNABLE TO FOLLOW DIRECTIONS, BEGAN SWINGING ARMS AT STAFF, REPOSITIONED/REDIRECTED AND PATIENT CONTINUED TO SWING AND PUSH HIMSELF DOWN LOW IN THE BED. REPORTED TO DR ANDUJAR, PRN ATIVAN FOR AGGRESSION STARTED, PATIENT WAS ALREADY HAVING VISUAL AND AUDITORY HALLUCINATION, THE ATIVAN DECREASED PATIENTS RESTLESSNESS AND AGGRESSION. CONTINUES TO TRY TO PULL YOO OUT THROUGH THE SHIFT, ANOTHER UA SENT TODAY, VERY FRAGILE SKIN, VERY MALNUTRITIONED, BED ALARM ON, WILL RELAY TO PM RN
[2024-06-18 19:21] VITALS: BP 153/100
[2024-06-19 03:05] VITALS: BP 124/77
--- NOTE | 2024-06-19 05:45 | NUR ---
SHIFT SUMMARY PT UP WALKING IN ROOM. WALKED TO END OF HALLWAY AND BACK. SHE HAS BEEN ANXIOUS, UNEASY, AND CONFUSED REGARDING HER HOSPITALIZATION AND UPCOMING TRANSFER. REMINDED PT OF THE CIRCUMSTANCE. PT ACCEPTING OF EXPLANATION. SHE IS NOW SLEEPING SOUNDLY. CALL LIGHT IN REACH.
--- NOTE | 2024-06-19 05:46 | NUR ---
SHIFT SUMMARY PT UNABLE TO SWALLOW WHOLE PILLS. THIS RN CRUSHED MEDS AND DISSOLVED IN WARM JUICE. PT WAS SUCCESSFULLY ABLE TO TAKE NIGHT TIME MEDICATIONS. WILL PASS ON TO DAY SHIFT. PT HAS BEEN EXPERIENCING AUDITORY AND VISUAL HALLUCINATIONS FOR MOST OF SHIFT. PT REDIRECTABLE FOR A SHORT TIME, THEN BEGINS EXPERIENCING HALLUCINATIONS AGAIN. NOW SLEEPING SOUNDLY. CALL LIGHT IN REACH. MORNING MEDICATIONS HELD. PT IS VERY CONFUSED AND REACHING OUT AND GRABBING AT STAFF. HE IS NOT REDIRECTABLE AT THIS TIME.
[2024-06-19 07:09] VITALS: BP 131/75
[2024-06-19] MEDS ORDERED: OxyCODONE HCL 5 MG TAB PO PRN (11:20)
[2024-06-19 15:33] VITALS: BP 123/68
--- NOTE | 2024-06-19 18:03 | NUR ---
PALLIATIVE CARE NOTE: MET WITH SON TODAY TO DISCUSS PT DECLINING STATUS. SON FEELS LIKE HIS DAD WAS DOING JUST FINE UNTIL LAST WEDNESDAY. HE NOTICED HE WAS NOT AWAKE HE USUALLY WAS AND TODAY HE SAID HE THINKS HIS DAD IS HALLUCINATING. WE DISCUSSED HIS DAD HAS BEEN SLOWLY DECLINING. PT/OT REPORT PT HAS NOT BEEN PARTICIPATING IN THERAPY. PT HAS POTENTIAL UTI. ALSO NOTED PT HAD CHOKED ON SOME LIQUIDS. DISCUSSED POTENTIAL DISCHARGE TO [facility] WITH HOSPICE. SON STATES NO ONE HAS TALKED TO HIM ABOUT HOSPICE. UPDATED SON PT NOW HAS URINARY CATHETER WHICH WAS PLACED DUE TO CHRONIC RETENTION. HE MAY HAVE UTI WHICH HE IS CURRENTLY BEING TREATED FOR WITH ROCEPHIN. SON WANTS US TO TREAT HIS UTI AT THIS TIME. SON COMMENTED PT HAS DECLINED SO FAST OVER THE YEAR, HE DOESN'T UNDERSTAND WHAT HAPPENED. WE DISCUSS NATURAL PROGRESSION OF DEMENTIA. UPDATED DR. MCCLELLAN OF CONCERNS. ORDER PLACED TO CHANGE CATHETER THERE IS NO DOCUMENTATION IT WAS CHANGED ONCE CONCERNS OF UTI NOTED. PT ON DAY 3 ABX TX. CXR ORDERED TO RULE OUT ASPIRATION. REVEIWED CHART FOR WEIGHT LOSS. ADMISSION WT ON 05/18/24 WAS 52.62 KG. WT ON 06/15/24 WAS 53.4 KG
--- NOTE | 2024-06-19 18:08 | NUR ---
PT ALERT AND ORIENTED TO SELF ONLY. PALLIATIVE CARE RN SPOKE WITH SON ABOUT DISCHARGING TO A FACILITY ON HOSPICE, SON AGREEABLE, BUT NOT FOR COMFORT CARE AT THIS TIME. YOO CHANGED PER ORDER, PT TOLERATED WELL DRAINING TO GRAVITY CLEAR YELLOW URINE. VSS, 2.5L O2, NON-TELE. VISUAL AND AUDITORY HALLUCINATIONS. C/O BACK PAIN TREATED WITH PRN TYLENOL. CALL LIGHT IN REACH.
[2024-06-19 20:20] VITALS: BP 104/53
[2024-06-20 02:48] VITALS: BP 133/60
--- NOTE | 2024-06-20 05:57 | NUR ---
SHIFT SUMMARY PT HAS BEEN RESTING COMFORTABLY OVERNIGHT. HE HAS BEEN AO TO SELF, CONFUSED YET REDIRECTABLE. PT HAS BEEN ON BEDREST. PT HAS BEEN ON 4LNC, WHICH HE TAKES OFF AT TIMES. PT NEEDS REMINDERS TO KEEP OXYGEN ON. PT HAS YOO, WHICH IS PATENT AND DRAINING BY GRAVITY. HE HAS HAD NO COMPLAINTS OVERNIGHT. NO ACUTE EVENTS ON SHIFT.
[2024-06-20 07:28] VITALS: BP 129/75
[2024-06-20 10:57] VITALS: BP 109/70
[2024-06-20 15:14] VITALS: BP 108/69
--- NOTE | 2024-06-20 15:53 | NUR ---
1530 ATTEMPTED TO CALL [facility] TO GET UPDATE IF PT CAN BE ADMITTED DESPITE DECLINING STATUS. NO ANSWER, FORWARDED TO VOICEMAIL.
[2024-06-20] MEDS ORDERED: Bisacodyl 5 MG TabEC PO PRN (16:30)
[2024-06-20] MEDS ORDERED: Lactulose 20 GM/30 ML UDC PO ONE (17:00)
[2024-06-20 20:30] VITALS: BP 123/75
[2024-06-20] MEDS ORDERED: Cefdinir 300 MG Cap PO SCH (21:00)
[2024-06-20] MEDS ORDERED: Docusate Sodium/Senna 1 Tab PO SCH (21:00)
[2024-06-21 03:20] VITALS: BP 127/83
--- NOTE | 2024-06-21 05:34 | NUR ---
SHIFT SUMMARY PT HAS BEEN RESTING IN BED OVERNIGHT. PT HAS BEEN AO TO SELF, CONFUSED YET COOPERATIVE. PT HAD RECURRING EPISODES OF CONFUSION AND RESTLESSNESS, BUT HAS BEEN REDIRECTABLE. PT HAS YOO IN PLACE, PATENT AND DRAINING BY GRAVITY. PT HAS NASAL CANNULA 3L ON, BUT FREQUENTLY TAKEN OFF. HE HAS BEEN CONSTANTLY REMINDED TO KEEP O2 ON. PT HAD NO COMPLAINTS. NO ACUTE EVENTS OVERNIGHT.
[2024-06-21 07:36] VITALS: BP 146/76
[2024-06-21 15:46] VITALS: BP 118/75
--- NOTE | 2024-06-21 18:40 | NUR ---
SUMMARY PATIENT STILL HAS A POOR APPETITE, EATS A COUPLE BITES OF BREAKFAST AND DINNER, USUALLY REFUSES LUNCH AND REQUESTS A SNACK. IS NOT DRINKING ENSURES. VERY LIMITED MOBILITY. REPOSITIONING IN BED. GENERALIZED WEAKNESS. CONFUSION, HALLUCINATING. BEDREST DUE TO WEAKNESS, ALTERED MENTAITON. YOO IN PLACE, DRAINING TO GRAVITY, PATENT, YELLOW, NO SEDIMENT OR CLOUDINESS PRESENT. PATIENTS DAUGHTER IN LAW WAS HERE TO VISIT THIS MORNING. SPEECH THERAPIST UPGRADED PATIENT FROM THINS TO NECTAR THICKENED LIQUIDS.
[2024-06-21 19:41] VITALS: BP 136/72
[2024-06-22 02:57] VITALS: BP 135/85
--- NOTE | 2024-06-22 05:46 | NUR ---
SHIFT SUMMARY PT ALERT AND ORIENTED TIMES 1-2. PT ADMITTED FOR FAILURE TO THRIVE. PT HAS YOO, THAT IS DRAINING TO GRAVITY. PT HAS BEEN RE-ADJUSTED FOR COMFORT Q2. PT TOOK HS MEDICATION PER EMAR. PT APPEARED CONFUSED AT TIMES, CALLING OUT AT NIGHT TO UNSEEN OTHERS, ASKING STAFF TO ANSWER THE DOOR BECAUSE HE HEARS DOORBELL RINGING. REMINDED PT THAT HE HAS A YOO CATH AND DOES NOT NEED TO GET OUT OF BED. PT IS REDIRECTABLE EASILY AND DOES NOT CHALLENGE WHEN TOLD HE NEEDS TO STAY IN BED FOR SAFETY. BED IN LOW POSITION, CALL LIGHT WITHIN REACH, RAILS TIMES 3.
[2024-06-22 07:04] VITALS: BP 149/77
--- NOTE | 2024-06-22 16:54 | NUR ---
"Spiritual Care Visit | Nurse Request At the request of the attending nurse, I cam to bedside. Pt. displays evidence of significant confusion and little capability to filter his thoughts, words and actions. This oracle database developer did ask the pt. about his son. The Pt. verbalized a postive response about his son. Assisted the nurse at her request to help reposition the Pt. The Pt. welcomed this oracle database developer to visit him tomorrow."
--- NOTE | 2024-06-22 18:28 | NUR ---
SHIFT SUMMARY: PATIENT IS ALERT AND ORIENTED TO SELF. HE IS ON BEDREST, HAS A YOO, IS A FEEDER; APPETITE HAS BEEN IMPROVED. PATIENT SHOUTS OUT, HALLUCINATES; BAD ENOUGH WHERE IT WILL CAUSE HIM DISTRESS. PATIENT WAS MEDICATED FOR THESE EVENTS TODAY; FIRST AT 1425 WITH SEROQUEL; WAS INEFFECTIVE. PATIENT CONTINUED TO ESCALATE; ATTEMPTS MADE TO DEESCLATE PATIENT VERBAL AND CONSOLE WITH TOUCH, BUT INEFFECTIVE; CHAPAPRIL CALLED UPON WELL TO ASSIST. 1 MG OF IV ATIVAN GIVEN; THIS CAUSED PATIENT TO CALM AND HAS NOW BEEN RESTING; RESPIRATION EVEN AND UNLABORED, AROUSABLE, NO SIGNS OR SYMPTOMS OF DISTRESS, CALL LIGHT WITHIN REACH, BED ALARM ON, PLAN OF CARE ONGOING.
[2024-06-22 19:29] VITALS: BP 130/80
[2024-06-23 02:34] VITALS: BP 122/87
--- NOTE | 2024-06-23 06:12 | NUR ---
SHIFT SUMMARY PT ALERT AND ORIENTED TIMES 1-2. PT ADMITTED FOR FAILURE TO THRIVE. PT HAS YOO, THAT IS DRAINING TO GRAVITY. PT HAS BEEN RE-ADJUSTED FOR COMFORT Q2. PT TOOK HS MEDICATION PER EMAR. PT APPEARED TO SLEEP THROUGH THE NIGHT WITHOUT ANY ISSUES.PT IS REDIRECTABLE EASILY AND DOES NOT CHALLENGE WHEN TOLD HE NEEDS TO STAY IN BED FOR SAFETY. BED IN LOW POSITION, CALL LIGHT WITHIN REACH, RAILS TIMES 3.
[2024-06-23 07:42] VITALS: BP 134/68
[2024-06-23] MEDS ORDERED: EUTHYROX100 MCG PO (11:49)
[2024-06-23] MEDS ORDERED: ASPI81CH PO (11:49)
[2024-06-23] MEDS ORDERED: METO25 PO (11:49)
[2024-06-23] MEDS ORDERED: SPIRIVA RESPIMAT4 G3 INH (11:49)
[2024-06-23] MEDS ORDERED: IPRAT-ALBUT 0.5-3 ML INH (11:50)
[2024-06-23] MEDS ORDERED: FERROUS GLUCON324 M2 PO (11:50)
[2024-06-23] MEDS ORDERED: DULERA 200 MCG-13 GM INH (11:51)
[2024-06-23] MEDS ORDERED: MEGESTROL400 MG/13 PO (11:51)
[2024-06-23] MEDS ORDERED: MIRT15 PO (11:51)
[2024-06-23] MEDS ORDERED: Seroquel Xr50 MG PO (11:52)
[2024-06-23] MEDS ORDERED: TAMS.4ER PO (11:52)
--- NOTE | 2024-06-23 14:23 | NUR ---
DISCHARGE NOTE: MEDICAL TRANSPORT ARRIVED TO GET PATIENT VIA GURNEY. PAPERWORK PROVIDED TO THE MEDICAL TRANSPORTERS. PATIENT TRANSFERRED ONTO THE GURNEY BELONGINGS PROVIDED. PATIENT ALERT AND NO SIGNS OR SYMPTOMS OF DISTRESS. CALL MADE TO HERNANDO GONZALEZ TO GIVE REPORT, WAS PLACED ON HOLD FOR SEVERAL MINUTES PRIOR TO DISCONNECTING THE CALL.
== END 2024-06-23 14:07 | DRG 602 ==
LOC: ER 10:26 → MEDS 14:46 → ENPENDDIS 06-23 11:25 → MEDS 06-23 14:07
PROVIDERS: Emergency Medicine; Internal Medicine; ADMIT Hospitalist
DX: L03.116 Cellulitis of left lower limb (principal); E43 Unspecified severe protein-calorie malnutrition; G93.41 Metabolic encephalopathy; N17.9 Acute kidney failure, unspecified; Z59.01 Sheltered homelessness; Z68.1 Body mass index [BMI] 19.9 or less, adult; I50.32 Chronic diastolic (congestive) heart failure; R64 Cachexia; B37.49 Other urogenital candidiasis; Z66 Do not resuscitate; I48.0 Paroxysmal atrial fibrillation; I11.0 Hypertensive heart disease with heart failure; R62.7 Adult failure to thrive; Z60.2 Problems related to living alone; R19.7 Diarrhea, unspecified; B86 Scabies; D50.9 Iron deficiency anemia, unspecified; K21.9 Gastro-esophageal reflux disease without esophagitis; I35.0 Nonrheumatic aortic (valve) stenosis; R82.81 Pyuria; G30.9 Alzheimer's disease, unspecified; F06.70 Mild neurocognitive disorder due to known physiological condition without behavioral disturbance; E78.5 Hyperlipidemia, unspecified; E03.9 Hypothyroidism, unspecified; I95.9 Hypotension, unspecified; H10.9 Unspecified conjunctivitis; R33.9 Retention of urine, unspecified; Z85.820 Personal history of malignant melanoma of skin; Z79.890 Hormone replacement therapy; Z79.899 Other long term (current) drug therapy
CPT/HCPCS: 36415; 51701; 70450; 71045; 80048; 80053; 81001; 82565; 82607; 82728; 82746; 83540; 83550; 83735; 83880; 84439; 84443; 84481; 84484; 85014; 85018; 85025; 85027; 87086; 87428-QW; 92526; 92610; 93005; 93010; 93971; 94640; 94664; 94760; 96360; 97110; 97110-CQ; 97116-CQ; 97129; 97130; 97161; 97164; 97165; 97168; 97530; 97535; 99285-25; A9270; J0696; J1650; J2060; J7030; J7050; J7060; J7120

== ENCOUNTER 2024-07-03 04:46 | Emergency (ER) | payer MEDICARE, OTHER ==
[~2024-07-03] VITALS: Ht 165.1 cm; Wt 36.3 kg
[~2024-07-03 04:46] MED LIST changes: +ASPI81CH PO; +DULERA 200 MCG-13 GM INH; +ELIQUIS2.5 MG PO; +EUTHYROX100 MCG PO; +EUTHYROX50 MCG PO; +FERROUS GLUCON324 M2 PO; +IPRAT-ALBUT 0.5-3 ML INH; +MEGESTROL400 MG/13 PO; +METO25 PO; +MIRT15 PO; +SPIRIVA RESPIMAT4 G3 INH; +Seroquel Xr50 MG PO; +TAMS.4ER PO; +TIOT18 INH
--- NOTE | 2024-07-03 06:39 | NUR ---
THIS RN ATTEMPTED TO CONTACT PT'S SON, ALSO NAMED IVAN SUGGS MULTIPLE TIMES TO NOTIFY OF HIS FATHER'S PASSING. WAS ABLE TO SPEAK WITH THE SON WHEN PT FIRST ARRIVED, HOWEVER ALL CALLS SINCE HE HAS PASSED HAVE WENT UNANSWERED. VOICEMAIL LEFT WELL.
[2024-07-03] MEDS ORDERED: EPINEPhrine HCl 0.1 MG/ML 10ML SYR XX ONE (21:05)
== END 2024-07-03 04:55 ==
LOC: ER 04:46
DX: I46.9 Cardiac arrest, cause unspecified (principal); K92.2 Gastrointestinal hemorrhage, unspecified; I11.0 Hypertensive heart disease with heart failure; I50.30 Unspecified diastolic (congestive) heart failure; J44.9 Chronic obstructive pulmonary disease, unspecified; I48.91 Unspecified atrial fibrillation; Z87.891 Personal history of nicotine dependence; Z79.82 Long term (current) use of aspirin; Z79.899 Other long term (current) drug therapy
CPT/HCPCS: 31500; 33210; 92950; 99285-25